=== PATIENT | male | born 1960 | race Caucasian/White ===

== ENCOUNTER 2017-01-03 19:36 | Inpatient (IN) | payer BC ==
[~2017-01-03 19:36] MED LIST: ACETAMINOPHEN325 MG PO; ACTOS PLUS MET; ALDACTONE25 M1 PO; ALLOPURINOL100 M1 PO; AMITRIPTYLINE H25 M1 PO; ASPIRIN; ASPIRIN ENTERI325 MG PO; ASPIRIN81 MG PO; CARVEDILOL3.125 MG PO; COREG12.5 M1 PO; COUMADIN5 M2 PO; COUMADIN5 MG PO; COUMADIN6 M1 PO; COZAAR25 M1 PO; DELTASONE20 MG PO; DEMADEX20 M1 PO; GLUCOPHAGE1000 MG; GLUCOPHAGE850 M1 PO; INDOCIN50 MG PO; K-DUR10 MEQ PO; KEFLEX500 MG PO; LASIX20 MG PO; LISINOPRIL20 MG; LISINOPRIL20 MG PO; LUNESTA2 MG PO; MAGNESIUM OXID400 M1 PO; METOPROLOL SUCCINATE PO; NABUMETONE750 MG; NAPROXEN500 MG PO; NOVOLOG PEN SC; PERCOCET 5-3251 EACH PO; PERCOCET 5/3251 TAB PO; PLAQUENIL200 M1 PO; PREDNICARBATE; PREDNISONE10 M1 PO; PREDNISONE5 M1 PO; PROTONIX40 M2 PO; RESTORIL15 MG; SOTALOL HCL80 MG PO; SPIRONOLACTONE25 M2 PO; STOP HOME MEDICATION; SULFASALAZINE500 M1; TYLENOL W/CODEI1 TAB PO; TYLENOL325 M2 PO; VITORIN; VYTORIN 10-401 EACH PO; ZOFRAN ODT4 MG PO; ZOFRAN4 M2 PO; [UNRECOGNIZED DRUG - OTHER] PO
[2017-01-03 20:22] LABS: BASO % 0.3 % (0-2); EOS % 1.5 % (0-7); EOSINOPHIL ABSOLUTE COUNT 0.1 tho/cmm (0.0-0.7); HGB-HEMOGLOBIN 11.9 gm/dl (13.5-17.0); IMMATURE GRANULOCYTES ABSOLUTE 0.04 tho/cmm (0-0.03); IMMATURE GRANULOCYTES PERCENT 0.5 % (0-0.3); LYMPH % 22.9 % (20-45); LYMPH ABSOLUTE COUNT 1.7 tho/cmm (0.8-4.5); MCH (MEAN CORPUSCULAR HGB) 29.5 pg (28.0-32.0); MCHC MEAN CORPUSCULAR HGB CONC 32.2 % (32.0-36.0); MCV (MEAN CELL VOLUME) 91.6 fl (82.0-96.0); MONO % 8.6 % (0-12); MONOCYTE ABSOLUTE COUNT 0.6 tho/cmm (0.0-1.2); NEUTROPHIL ABSOLUTE COUNT 4.8 tho/cmm (1.6-8.0); NEUTROPHIL-AUTOMATED 4.8 tho/cmm (1.6-8.0); NEUTROPHILS % 66.2 % (40-80); PLATELET COUNT 182 tho/cmm (150-450); RED BLOOD COUNT 4.04 mil/cmm (4.40-5.70); RED CELL DISTRIBUTION WIDTH 14.8 % (12.4-16.4); WHITE BLOOD COUNT 7.3 tho/cmm (4.0-10.0)
[2017-01-03 20:40] LABS: ANION GAP 12 mmol/L (0-20); BLOOD UREA NITROGEN 33 mg/dl (6-24); CALCIUM 8.7 mg/dl (8.5-10.5); CARBON DIOXIDE-VENOUS 29 mmol/L (22-32); CHLORIDE 100 mmol/l (96-110); CREATININE 1.35 mg/dl (0.60-1.30); GLUCOSE 120 mg/dL (70-110); MAGNESIUM 1.8 mg/dl (1.3-2.6); POTASSIUM 3.1 mmol/L (3.7-5.1); SODIUM 138 mmol/L (135-145); eGFR VALUE FOR BLACK 67 mL/Min
[2017-01-03 21:18] LABS: INR 1.9 INR (0.9-1.1); PROTHROMBIN TIME 22.6 SECONDS (9.0-13.6)
[2017-01-03] MEDS ORDERED: DEMADEX20 M1 PO (22:01)
[2017-01-03] MEDS ORDERED: POTASSIUM CHLO20 ME3 PO (22:02)
[2017-01-03] MEDS ORDERED: LANOXIN125 MC3 PO (22:03)
[2017-01-03] MEDS ORDERED: TOPROL XL25 M1 PO (22:04)
[2017-01-03] MEDS ORDERED: PLAQUENIL200 M1 (22:05)
[2017-01-03] MEDS ORDERED: ENTRESTO 24 MG1 EACH PO (22:06)
[2017-01-03] MEDS ORDERED: VITAMIN D31000 UNI3 PO (22:07)
[2017-01-04 05:13] LABS: PROTHROMBIN TIME 24.2 SECONDS (9.0-13.6)
[2017-01-04 05:25] LABS: ANION GAP 11 mmol/L (0-20); BLOOD UREA NITROGEN 31 mg/dl (6-24); CALCIUM 8.6 mg/dl (8.5-10.5); CARBON DIOXIDE-VENOUS 28 mmol/L (22-32); CHLORIDE 104 mmol/l (96-110); CREATININE 1.28 mg/dl (0.60-1.30); GLUCOSE 108 mg/dL (70-110); MAGNESIUM 2.1 mg/dl (1.3-2.6); POTASSIUM 3.5 mmol/L (3.7-5.1); SODIUM 139 mmol/L (135-145); eGFR VALUE FOR BLACK 72 mL/Min
[2017-01-04 05:29] LABS: TSH-THYROID STIMULATING HORM. 4.43 uIU/ml (0.40-3.80)
[2017-01-05 06:19] LABS: ANION GAP 12 mmol/L (0-20); BLOOD UREA NITROGEN 29 mg/dl (6-24); CALCIUM 8.8 mg/dl (8.5-10.5); CARBON DIOXIDE-VENOUS 25 mmol/L (22-32); CHLORIDE 102 mmol/l (96-110); CREATININE 1.43 mg/dl (0.60-1.30); SODIUM 135 mmol/L (135-145); eGFR VALUE FOR BLACK 63 mL/Min
[2017-01-05 06:21] LABS: GLUCOSE 175 mg/dL (70-110)
[2017-01-06 04:47] LABS: BASO % 0.2 % (0-2); EOS % 0.2 % (0-7); HCT-HEMATOCRIT 43.9 % (36.0-53.5); HGB-HEMOGLOBIN 13.9 gm/dl (13.5-17.0); IMMATURE GRANULOCYTES ABSOLUTE 0.17 tho/cmm (0-0.03); IMMATURE GRANULOCYTES PERCENT 1.2 % (0-0.3); LYMPH % 13.8 % (20-45); LYMPH ABSOLUTE COUNT 1.9 tho/cmm (0.8-4.5); MCH (MEAN CORPUSCULAR HGB) 29.6 pg (28.0-32.0); MCHC MEAN CORPUSCULAR HGB CONC 31.7 % (32.0-36.0); MCV (MEAN CELL VOLUME) 93.4 fl (82.0-96.0); MEAN PLATELET VOLUME 9.8 cmc (9.4-12.4); MONO % 9.1 % (0-12); MONOCYTE ABSOLUTE COUNT 1.3 tho/cmm (0.0-1.2); NEUTROPHIL ABSOLUTE COUNT 10.3 tho/cmm (1.6-8.0); NEUTROPHIL-AUTOMATED 10.3 tho/cmm (1.6-8.0); NEUTROPHILS % 75.5 % (40-80); PLATELET COUNT 196 tho/cmm (150-450); RED CELL DISTRIBUTION WIDTH 14.9 % (12.4-16.4)
[2017-01-06 04:52] LABS: INR 2.3 INR (0.9-1.1); PROTHROMBIN TIME 27.6 SECONDS (9.0-13.6)
[2017-01-06 04:59] LABS: BLOOD UREA NITROGEN 40 mg/dl (6-24); CALCIUM 8.7 mg/dl (8.5-10.5); CARBON DIOXIDE-VENOUS 24 mmol/L (22-32); CHLORIDE 97 mmol/l (96-110); GLUCOSE 166 mg/dL (70-110); SODIUM 135 mmol/L (135-145); eGFR VALUE FOR BLACK 38 mL/Min
[2017-01-06 05:09] LABS: WHITE BLOOD COUNT 13.7 tho/cmm (4.0-10.0)
[2017-01-06 05:18] LABS: ANION GAP 19 mmol/L (0-20); CREATININE 2.16 mg/dl (0.60-1.30); POTASSIUM 4.9 mmol/L (3.7-5.1)
[2017-01-06 14:50] LABS: ABG CO2 ARTERIAL 11 mmol/L (21-27); ARTERIAL BLD GAS O2 SATURATION 99 % (95-98); ARTERIAL BLOOD GAS PCO2 25 mmHg (32-45); ARTERIAL PO2 224 mmHg (70-100); BICARBONATE 10 mmol/L (21-28); BLOOD GAS BASE EXCESS -17 mM/L (-/+3); PH 7.22 Units (7.35-7.45)
[2017-01-06 15:59] LABS: BASO % 0.1 % (0-2); HCT-HEMATOCRIT 39.4 % (36.0-53.5); HGB-HEMOGLOBIN 12.4 gm/dl (13.5-17.0); IMMATURE GRANULOCYTES ABSOLUTE 0.31 tho/cmm (0-0.03); IMMATURE GRANULOCYTES PERCENT 1.4 % (0-0.3); LYMPH % 4.2 % (20-45); LYMPH ABSOLUTE COUNT 0.9 tho/cmm (0.8-4.5); MCH (MEAN CORPUSCULAR HGB) 29.8 pg (28.0-32.0); MCHC MEAN CORPUSCULAR HGB CONC 31.5 % (32.0-36.0); MCV (MEAN CELL VOLUME) 94.7 fl (82.0-96.0); MEAN PLATELET VOLUME 10.2 cmc (9.4-12.4); MONO % 5.9 % (0-12); MONOCYTE ABSOLUTE COUNT 1.3 tho/cmm (0.0-1.2); NEUTROPHIL ABSOLUTE COUNT 19.5 tho/cmm (1.6-8.0); NEUTROPHIL-AUTOMATED 19.5 tho/cmm (1.6-8.0); NEUTROPHILS % 88.4 % (40-80); PLATELET COUNT 213 tho/cmm (150-450); RED BLOOD COUNT 4.16 mil/cmm (4.40-5.70); RED CELL DISTRIBUTION WIDTH 14.9 % (12.4-16.4)
[2017-01-06 16:29] LABS: WHITE BLOOD COUNT 22.1 tho/cmm (4.0-10.0)
[2017-01-06 16:32] LABS: ALB/GLOB RATIO 1.2 (0.8-2.0); ALBUMIN 3.4 g/dl (3.5-5.0); ALKALINE PHOSPHATASE 83 U/L (33-138); BILIRUBIN,TOTAL 3.3 mg/dl (0.0-1.5); BLOOD UREA NITROGEN 52 mg/dl (6-24); CALCIUM 8.3 mg/dl (8.5-10.5); CHLORIDE 97 mmol/l (96-110); GLUCOSE 86 mg/dL (70-110); POTASSIUM 5.3 mmol/L (3.7-5.1); SODIUM 133 mmol/L (135-145)
[2017-01-06 16:33] LABS: ANION GAP 30 mmol/L (0-20); CARBON DIOXIDE-VENOUS 11 mmol/L (22-32); eGFR VALUE FOR BLACK 20 mL/Min
[2017-01-06 16:35] LABS: PROCALCITONIN 5.56 ng/ml (0.05-0.09)
[2017-01-06 16:40] LABS: ALT/SGPT 7005 U/L (12-78)
[2017-01-06 16:59] LABS: ABG CO2 ARTERIAL 10 mmol/L (21-27); ARTERIAL BLD GAS O2 SATURATION 96 % (95-98); ARTERIAL BLOOD GAS PCO2 31 mmHg (32-45); ARTERIAL PO2 122 mmHg (70-100); BICARBONATE 9 mmol/L (21-28); BLOOD GAS BASE EXCESS -21 mM/L (-/+3)
[2017-01-06 17:02] LABS: PH 7.08 Units (7.35-7.45)
[2017-01-06 17:22] LABS: AST/SGOT >10000 U/L (10-40)
[2017-01-06 19:07] LABS: ARTERIAL BLD GAS O2 SATURATION 97 % (95-98); ARTERIAL BLOOD GAS PCO2 29 mmHg (32-45); ARTERIAL PO2 128 mmHg (70-100); BICARBONATE 9 mmol/L (21-28); BLOOD GAS BASE EXCESS -19 mM/L (-/+3)
[2017-01-06 19:08] LABS: URINE CREATININE-RANDOM 178 mg/dl (30-125); URINE TOTAL PROTEIN-RANDOM 33.4 mg/dl (<11.8)
[2017-01-06 19:10] LABS: ABG CO2 ARTERIAL 10 mmol/L (21-27); PH 7.13 Units (7.35-7.45)
[2017-01-06 19:11] LABS: URINE SODIUM-RANDOM <5 mmol/L (20-110)
[2017-01-06 19:31] LABS: PARTIAL THROMBOPLASTIN TIME 33 SECONDS (22-38)
[2017-01-06 19:36] LABS: INR 5.1 INR (0.9-1.1)
[2017-01-06 19:40] LABS: ALBUMIN 3.6 g/dl (3.5-5.0); ANION GAP 29 mmol/L (0-20); BLOOD UREA NITROGEN 53 mg/dl (6-24); CALCIUM 8.4 mg/dl (8.5-10.5); CARBON DIOXIDE-VENOUS 12 mmol/L (22-32); CHLORIDE 97 mmol/l (96-110); CREATININE 3.65 mg/dl (0.60-1.30); GLUCOSE 87 mg/dL (70-110); PHOSPHOROUS 8.1 mg/dl (2.5-4.9); POTASSIUM 5.4 mmol/L (3.7-5.1); SODIUM 133 mmol/L (135-145); eGFR VALUE FOR BLACK 20 mL/Min
--- NOTE | 2017-01-06 20:25 | NUR ---
1435 TRANSFERRED FROM PCU POST CODE FOR HYPOTENSION AND DECREASED RESPONSIVENESS, PT VERY SLEEPY, SKIN COOL AND DISCOLORED SHINS-HE SAYS THAT IS HIS NORMAL, HYPOTENSION, ON DOPAMINE AND INCREASED FROM 5-10, STARTED IV LAC FOR IV FLUID BOLUS, THEN STARTED LEVO, AMNIODARONE STILL CONT AT 0.5/MIN, PICC UNABLE TO INSERT SO DR COTTER HERE AND RSC INSERTED-QUAD LUMEN, FOR IV PRESSORS, STARTED ON VASOPRESSIN AT 0.03, FLUID BOLUS DONE AND 2ND LITER STARTED ALONG WITH ANOTHER 500 INFUSED, CONTINUES TO HAVE LOB BP, DR JEREMY GRACE ALONG WITH DR OLVIO. ORDERS NOTED, SEPDSIS ORDERS STARTED AND SVO2 SENT ALONG WITH OTHER LAB AND BLOOD CULT-X2, THEN REIS INSERTED FOR NO URINE OUTPUT. KAROLINE CONCENTRATED RETURNS. CALLED FOR QUAD STRENGHT LEVO AND CHANGED OVER TO THIS. CONTINUE TO MONITOR FOR MAP AROUND 65. FAMILY HERE AND IN TO SEE PT, DR COTTER ASKED PT INFRONT OF FAMILY RE IF NEED BREATHING TUBE IF OK TO DO THIS, THEY ALL AGREE TO THIS. MEDS GIVEN ORDERED AND THEN DR SAN HERE AND BICARB GIVEN STAT AND THEN SENT ORDERS FOR BICARB GTT. REPORT GIVEN TO DIAMOND PETERSON.
[2017-01-06 21:06] LABS: URINE BILIRUBIN NEGATIVE (NEG); URINE BLOOD NEGATIVE (NEG); URINE GLUCOSE (UA) NEGATIVE (NEG); URINE KETONE NEGATIVE (NEG); URINE LEUKOCYTE ESTERASE NEGATIVE (NEG); URINE NITRITE NEGATIVE (NEG); URINE PROTEIN MODERATE (NEG); URINE SPECIFIC GRAVITY 1.025 (1.003-1.030)
[2017-01-06 21:07] LABS: URINE APPEARANCE HAZY; URINE COLOR YELLOW
[2017-01-06 21:16] LABS: URINE AMORPHOUS 1+; URINE EPITHELIAL CELLS 0 /[HPF] (0-10); URINE MUCUS 2+; URINE RBC 0 /[HPF] (0-5); URINE WBC 0 /[HPF] (0-5)
[2017-01-06 21:30] LABS: AMYLASE 189 U/L (20-90); LIPASE 269 U/L (73-393)
[2017-01-06 23:18] LABS: ARTERIAL BLD GAS O2 SATURATION 97 % (95-98); ARTERIAL BLOOD GAS PCO2 26 mmHg (32-45); ARTERIAL PO2 135 mmHg (70-100); BICARBONATE 7 mmol/L (21-28); BLOOD GAS BASE EXCESS -22 mM/L (-/+3)
[2017-01-06 23:19] LABS: ABG CO2 ARTERIAL 8 mmol/L (21-27); PH 7.09 Units (7.35-7.45)
[2017-01-07 00:21] LABS: ANION GAP 35 mmol/L (0-20); BLOOD UREA NITROGEN 56 mg/dl (6-24); CALCIUM 7.5 mg/dl (8.5-10.5); CHLORIDE 92 mmol/l (96-110); CREATININE 4.15 mg/dl (0.60-1.30); GLUCOSE 323 mg/dL (70-110); POTASSIUM 4.7 mmol/L (3.7-5.1); SODIUM 129 mmol/L (135-145); eGFR VALUE FOR BLACK 17 mL/Min
[2017-01-07 00:24] LABS: CARBON DIOXIDE-VENOUS 7 mmol/L (22-32)
[2017-01-07 01:35] LABS: ARTERIAL BLD GAS O2 SATURATION 98 % (95-98); ARTERIAL BLOOD GAS PCO2 28 mmHg (32-45); BICARBONATE 7 mmol/L (21-28); BLOOD GAS BASE EXCESS -23 mM/L (-/+3)
[2017-01-07 01:37] LABS: PH 7.03 Units (7.35-7.45)
[2017-01-07 01:38] LABS: ARTERIAL PO2 177 mmHg (70-100)
[2017-01-07 01:39] LABS: ABG CO2 ARTERIAL 8 mmol/L (21-27)
[2017-01-07 04:21] LABS: GLUCOSE 462 mg/dl (65-120)
[2017-01-07 04:41] LABS: BASO % 0.1 % (0-2); HCT-HEMATOCRIT 40.4 % (36.0-53.5); HGB-HEMOGLOBIN 12.2 gm/dl (13.5-17.0); IMMATURE GRANULOCYTES ABSOLUTE 0.15 tho/cmm (0-0.03); IMMATURE GRANULOCYTES PERCENT 0.6 % (0-0.3); LYMPH % 5.9 % (20-45); LYMPH ABSOLUTE COUNT 1.5 tho/cmm (0.8-4.5); MCH (MEAN CORPUSCULAR HGB) 29.5 pg (28.0-32.0); MCHC MEAN CORPUSCULAR HGB CONC 30.2 % (32.0-36.0); MCV (MEAN CELL VOLUME) 97.8 fl (82.0-96.0); MEAN PLATELET VOLUME 10.8 cmc (9.4-12.4); MONO % 3.5 % (0-12); MONOCYTE ABSOLUTE COUNT 0.9 tho/cmm (0.0-1.2); NEUTROPHIL ABSOLUTE COUNT 23.4 tho/cmm (1.6-8.0); NEUTROPHIL-AUTOMATED 23.4 tho/cmm (1.6-8.0); NEUTROPHILS % 89.9 % (40-80); PLATELET COUNT 260 tho/cmm (150-450); RED BLOOD COUNT 4.13 mil/cmm (4.40-5.70); RED CELL DISTRIBUTION WIDTH 15.1 % (12.4-16.4)
[2017-01-07 04:44] LABS: ALB/GLOB RATIO 1.1 (0.8-2.0); ALBUMIN 3.1 g/dl (3.5-5.0); ALKALINE PHOSPHATASE 112 U/L (33-138); BILIRUBIN,TOTAL 3.7 mg/dl (0.0-1.5); BLOOD UREA NITROGEN 56 mg/dl (6-24); CALCIUM 6.9 mg/dl (8.5-10.5); CHLORIDE 89 mmol/l (96-110); CREATININE 4.61 mg/dl (0.60-1.30); MAGNESIUM 2.1 mg/dl (1.3-2.6); POTASSIUM 4.2 mmol/L (3.7-5.1); SODIUM 130 mmol/L (135-145); eGFR VALUE FOR BLACK 15 mL/Min
[2017-01-07 05:03] LABS: ARTERIAL BLD GAS O2 SATURATION 98 % (95-98); ARTERIAL BLOOD GAS PCO2 24 mmHg (32-45); ARTERIAL PO2 172 mmHg (70-100); BICARBONATE 8 mmol/L (21-28); BLOOD GAS BASE EXCESS -21 mM/L (-/+3)
[2017-01-07 05:04] LABS: ABG CO2 ARTERIAL 8 mmol/L (21-27); PH 7.11 Units (7.35-7.45)
[2017-01-07 05:27] LABS: ALT/SGPT 9389 U/L (12-78)
[2017-01-07 06:00] LABS: ANION GAP 36 mmol/L (0-20); CARBON DIOXIDE-VENOUS 9 mmol/L (22-32)
[2017-01-07 08:50] LABS: AST/SGOT >10000 U/L (10-40)
--- NOTE | 2017-01-07 09:04 | NUR ---
DR. RAPHAEL FROM ANESTHESIA TO INTUBATE PATIENT. LIDOCAINE 100MG, ETOMIDATE 26MG, NIMBEX 12MG AND 2MG VERSED GIVEN. BIS MONITOR PLACED ON PATIENT'S FOREHEAD PER DR RAPHAEL. IZZY FROM RT TO ASSIST ANESTHESIA WITH INTUBATION. CXR STAT POST INTUBATION COMPLETED. ABGS DRAWN 30 MINUTES POST INTUBATION COMPLETED.
[2017-01-07 10:17] LABS: ARTERIAL BLD GAS O2 SATURATION 100 % (95-98); ARTERIAL BLOOD GAS PCO2 24 mmHg (32-45); BLOOD GAS BASE EXCESS -9 mM/L (-/+3)
[2017-01-07 10:18] LABS: ABG CO2 ARTERIAL 15 mmol/L (21-27); ARTERIAL PO2 291 mmHg (70-100); BICARBONATE 14 mmol/L (21-28)
[2017-01-07 10:27] LABS: GLUCOSE 446 mg/dl (65-120); PARTIAL THROMBOPLASTIN TIME 30 SECONDS (22-38)
[2017-01-07 10:48] LABS: PROTHROMBIN TIME 87.7 SECONDS (9.0-13.6)
[2017-01-07 10:49] LABS: INR 7.1 INR (0.9-1.1)
[2017-01-07 10:54] LABS: ALB/GLOB RATIO 1.2 (0.8-2.0); ALBUMIN 2.9 g/dl (3.5-5.0); ALKALINE PHOSPHATASE 111 U/L (33-138); BILIRUBIN,TOTAL 3.7 mg/dl (0.0-1.5); BLOOD UREA NITROGEN 60 mg/dl (6-24); CALCIUM 7.1 mg/dl (8.5-10.5); CHLORIDE 89 mmol/l (96-110); SODIUM 128 mmol/L (135-145); eGFR VALUE FOR BLACK 15 mL/Min
[2017-01-07 10:57] LABS: ANION GAP 29 mmol/L (0-20); CARBON DIOXIDE-VENOUS 15 mmol/L (22-32); POTASSIUM 4.6 mmol/L (3.7-5.1)
[2017-01-07 11:19] LABS: ALT/SGPT 9280 U/L (12-78); AST/SGOT >10000 U/L (10-40)
[2017-01-07 13:47] LABS: ARTERIAL BLD GAS O2 SATURATION 99 % (95-98); ARTERIAL BLOOD GAS PCO2 26 mmHg (32-45); BLOOD GAS BASE EXCESS -2 mM/L (-/+3)
[2017-01-07 13:48] LABS: ABG CO2 ARTERIAL 20 mmol/L (21-27); ARTERIAL PO2 134 mmHg (70-100); BICARBONATE 20 mmol/L (21-28)
[2017-01-07 14:26] LABS: PARTIAL THROMBOPLASTIN TIME 30 SECONDS (22-38)
[2017-01-07 14:37] LABS: INR 4.4 INR (0.9-1.1); PROTHROMBIN TIME 53.4 SECONDS (9.0-13.6)
[2017-01-07 15:39] LABS: ABG CO2 ARTERIAL 24 mmol/L (21-27); ARTERIAL BLD GAS O2 SATURATION 99 % (95-98); ARTERIAL BLOOD GAS PCO2 35 mmHg (32-45); ARTERIAL PO2 120 mmHg (70-100); BICARBONATE 23 mmol/L (21-28); BLOOD GAS BASE EXCESS -1 mM/L (-/+3); PH 7.43 Units (7.35-7.45)
[2017-01-07 15:44] LABS: ALB/GLOB RATIO 1.4 (0.8-2.0); ALBUMIN 3.1 g/dl (3.5-5.0); ALKALINE PHOSPHATASE 101 U/L (33-138); ANION GAP 23 mmol/L (0-20); BILIRUBIN,TOTAL 3.5 mg/dl (0.0-1.5); BLOOD UREA NITROGEN 61 mg/dl (6-24); CALCIUM 7.2 mg/dl (8.5-10.5); CARBON DIOXIDE-VENOUS 20 mmol/L (22-32); CHLORIDE 90 mmol/l (96-110); GLUCOSE 249 mg/dL (70-110); SODIUM 129 mmol/L (135-145); eGFR VALUE FOR BLACK 15 mL/Min
[2017-01-07 16:02] LABS: ALT/SGPT 8064 U/L (12-78); AST/SGOT >10000 U/L (10-40)
[2017-01-08 04:21] LABS: PROTHROMBIN TIME 106.8 SECONDS (9.0-13.6)
[2017-01-08 04:22] LABS: INR 8.6 INR (0.9-1.1)
[2017-01-08 04:32] LABS: BASO % 0.1 % (0-2); EOS % 0.1 % (0-7); HCT-HEMATOCRIT 32.9 % (36.0-53.5); IMMATURE GRANULOCYTES ABSOLUTE 0.05 tho/cmm (0-0.03); IMMATURE GRANULOCYTES PERCENT 0.3 % (0-0.3); LYMPH % 2.8 % (20-45); LYMPH ABSOLUTE COUNT 0.5 tho/cmm (0.8-4.5); MCH (MEAN CORPUSCULAR HGB) 29.3 pg (28.0-32.0); MEAN PLATELET VOLUME 10.2 cmc (9.4-12.4); MONO % 2.9 % (0-12); MONOCYTE ABSOLUTE COUNT 0.5 tho/cmm (0.0-1.2); NEUTROPHIL ABSOLUTE COUNT 14.8 tho/cmm (1.6-8.0); NEUTROPHIL-AUTOMATED 14.8 tho/cmm (1.6-8.0); NEUTROPHILS % 93.8 % (40-80); RED BLOOD COUNT 3.75 mil/cmm (4.40-5.70); RED CELL DISTRIBUTION WIDTH 14.5 % (12.4-16.4); WHITE BLOOD COUNT 15.8 tho/cmm (4.0-10.0)
[2017-01-08 04:33] LABS: ALB/GLOB RATIO 1.4 (0.8-2.0); ALKALINE PHOSPHATASE 102 U/L (33-138); ANION GAP 22 mmol/L (0-20); BILIRUBIN,TOTAL 4.5 mg/dl (0.0-1.5); BLOOD UREA NITROGEN 76 mg/dl (6-24); CALCIUM 6.6 mg/dl (8.5-10.5); CARBON DIOXIDE-VENOUS 23 mmol/L (22-32); CHLORIDE 88 mmol/l (96-110); CREATININE 5.39 mg/dl (0.60-1.30); GLUCOSE 135 mg/dL (70-110); MAGNESIUM 1.8 mg/dl (1.8-2.6); POTASSIUM 5.1 mmol/L (3.7-5.1); SODIUM 128 mmol/L (135-145); eGFR VALUE FOR BLACK 13 mL/Min
[2017-01-08 04:44] LABS: MCHC MEAN CORPUSCULAR HGB CONC 33.4 % (32.0-36.0); MCV (MEAN CELL VOLUME) 87.7 fl (82.0-96.0); PLATELET COUNT 126 tho/cmm (150-450)
[2017-01-08 04:48] LABS: ABG CO2 ARTERIAL 24 mmol/L (21-27); ARTERIAL BLD GAS O2 SATURATION 95 % (95-98); ARTERIAL BLOOD GAS PCO2 38 mmHg (32-45); BICARBONATE 23 mmol/L (21-28); BLOOD GAS BASE EXCESS -2 mM/L (-/+3); PH 7.39 Units (7.35-7.45)
[2017-01-08 04:49] LABS: ARTERIAL PO2 80 mmHg (70-100)
[2017-01-08 04:53] LABS: ALT/SGPT 7384 U/L (12-78); AST/SGOT 8828 U/L (10-40)
[2017-01-08 07:41] LABS: ABG CO2 ARTERIAL 22 mmol/L (21-27); ARTERIAL BLD GAS O2 SATURATION 98 % (95-98); ARTERIAL BLOOD GAS PCO2 34 mmHg (32-45); BICARBONATE 21 mmol/L (21-28); BLOOD GAS BASE EXCESS -3 mM/L (-/+3); PH 7.41 Units (7.35-7.45)
[2017-01-08 07:44] LABS: ARTERIAL PO2 103 mmHg (70-100)
[2017-01-08 08:37] LABS: BASO % 0.1 % (0-2); HCT-HEMATOCRIT 32.6 % (36.0-53.5); LYMPH % 2.7 % (20-45); LYMPH ABSOLUTE COUNT 0.4 tho/cmm (0.8-4.5); MCH (MEAN CORPUSCULAR HGB) 29.6 pg (28.0-32.0); MCHC MEAN CORPUSCULAR HGB CONC 33.7 % (32.0-36.0); MCV (MEAN CELL VOLUME) 87.9 fl (82.0-96.0); MEAN PLATELET VOLUME 10.8 cmc (9.4-12.4); MONOCYTE ABSOLUTE COUNT 0.6 tho/cmm (0.0-1.2); NEUTROPHIL ABSOLUTE COUNT 14.8 tho/cmm (1.6-8.0); NEUTROPHIL-AUTOMATED 14.8 tho/cmm (1.6-8.0); NEUTROPHILS % 92.6 % (40-80); PLATELET COUNT 138 tho/cmm (150-450); RED BLOOD COUNT 3.71 mil/cmm (4.40-5.70); RED CELL DISTRIBUTION WIDTH 14.6 % (12.4-16.4)
[2017-01-08 08:46] LABS: PARTIAL THROMBOPLASTIN TIME 30 SECONDS (22-38)
[2017-01-08 08:48] LABS: FIBRINOGEN 206 mg/dl (200-400)
[2017-01-08 08:49] LABS: ANTI THROMBIN III 53 % (80-120)
[2017-01-08 08:51] LABS: INR 4.4 INR (0.9-1.1); PROTHROMBIN TIME 53.9 SECONDS (9.0-13.6)
[2017-01-08 08:52] LABS: D-DIMER 29555 ng/mlFEU (<500)
[2017-01-08 13:52] LABS: PROTHROMBIN TIME 42.4 SECONDS (9.0-13.6)
[2017-01-08 13:53] LABS: INR 3.5 INR (0.9-1.1)
--- NOTE | 2017-01-08 18:30 | NUR ---
0815 PATIENT RESTLESS/ ANXIOUS, TRIES TO SIT UP AND MOUTHS WORDS. REASURED AND REORIENTED TO EVENTS AND PLACE. DAUGHTER @ [place]ESIDE. C/O PAIN AND THIRSTY. MORPHINE 2 MG IVP GIVEN. 0845 RESTING MORE QUIETLY. FFP X 2 UNITS INFUSED AND INR TO BE DRAWN. PLAN TO HAVE TEMPORARY HD CATH PLACED AND START CRRT. 0940 LAB RESULTS CALLED TO IR NURSE FOR DR. DIAZ. 1015 RESTLESS/AGITATED, TRIES TO GET HANDS TO MOUTH AND PULLS AGAINST RESTRAINTS. MOVING ALL EXTREMITIES AND TRIES TO SIT UP. MOUTHS WORDS, SHAKES HEAD YES FOR HAVING PAIN. ATIVAN 2MG AND MORPHINE 2 MG IVP GIVEN. HAS TREMORS OF UPPER BODY AND FACIAL TWITCH WITH AGITATION. IR CALLS, DR DIAZ WANTS 2 MORE UNITS FFP GIVEN PRIOR TO HD CATH INSERTION. 1030 RESTING QUIETLY. VS STABLE, SEE VISUAL FLOWSHEET-TITRATING LEVOPHED FOR MAP >65. 1130 FFP TRANSFUSION STARTED. 1245 FFP INFUSED. INR DRAWN. [address]R [address]ED TO DR. LEAL AND INTERVENTIONAL RADIOLOGY. ORDERS RECIEVED. 1545 TO IR FOR HD CATH PLACEMENT VIA BED. ACCOMPANIED BY RN AND RESP. THERAPIST. CRYOPRECIPITATE UNITS STARTED. 1700 BACK TO ROOM, TOLERATED PROCEDURE WELL. MOVE ARMS PURPOSEFULLY AND OPENS EYES WITH NOXIOUS STIMULI. CRRT STARTED 2 1710 BY DCL NURSE. 1720 4 UNITS CRYOPRECIPITATE COMPLETED. RESTING QUIETLY. TOLERATING CRRT WELL. LEVOPHED ON HOLD. 1800 DR. PINA CALLS AND GIVEN CONDITION UPDATE.
[2017-01-08 19:31] LABS: ABG CO2 ARTERIAL 23 mmol/L (21-27); ARTERIAL BLD GAS O2 SATURATION 99 % (95-98); ARTERIAL BLOOD GAS PCO2 34 mmHg (32-45); ARTERIAL PO2 146 mmHg (70-100); BICARBONATE 22 mmol/L (21-28); BLOOD GAS BASE EXCESS -2 mM/L (-/+3); PH 7.42 Units (7.35-7.45)
[2017-01-08 20:25] LABS: PROTHROMBIN TIME 36.6 SECONDS (9.0-13.6)
[2017-01-08 20:44] LABS: ALB/GLOB RATIO 1.1 (0.8-2.0); ALBUMIN 3.1 g/dl (3.5-5.0); ALKALINE PHOSPHATASE 95 U/L (33-138); ANION GAP 24 mmol/L (0-20); BILIRUBIN,TOTAL 4.8 mg/dl (0.0-1.5); BLOOD UREA NITROGEN 79 mg/dl (6-24); CALCIUM 6.6 mg/dl (8.5-10.5); CARBON DIOXIDE-VENOUS 21 mmol/L (22-32); CHLORIDE 90 mmol/l (96-110); CREATININE 5.06 mg/dl (0.60-1.30); GLUCOSE 182 mg/dL (70-110); MAGNESIUM 1.9 mg/dl (1.8-2.6); PHOSPHOROUS 7.3 mg/dl (2.5-4.9); POTASSIUM 4.7 mmol/L (3.7-5.1); SODIUM 130 mmol/L (135-145); eGFR VALUE FOR BLACK 14 mL/Min
[2017-01-08 20:54] LABS: ALT/SGPT 5377 U/L (12-78); AST/SGOT 4213 U/L (10-40)
[2017-01-08 21:30] LABS: INR 3.6 INR (0.9-1.1); PROTHROMBIN TIME 42.9 SECONDS (9.0-13.6)
[2017-01-09 00:23] LABS: ABG CO2 ARTERIAL 22 mmol/L (21-27); ARTERIAL BLD GAS O2 SATURATION 99 % (95-98); ARTERIAL BLOOD GAS PCO2 31 mmHg (32-45); ARTERIAL PO2 129 mmHg (70-100); BICARBONATE 21 mmol/L (21-28); BLOOD GAS BASE EXCESS -2 mM/L (-/+3); PH 7.45 Units (7.35-7.45)
[2017-01-09 00:24] LABS: HCT-HEMATOCRIT 31.4 % (36.0-53.5); HGB-HEMOGLOBIN 10.7 gm/dl (13.5-17.0); IMMATURE GRANULOCYTES ABSOLUTE 0.04 tho/cmm (0-0.03); IMMATURE GRANULOCYTES PERCENT 0.3 % (0-0.3); LYMPH % 4.2 % (20-45); LYMPH ABSOLUTE COUNT 0.5 tho/cmm (0.8-4.5); MCH (MEAN CORPUSCULAR HGB) 29.6 pg (28.0-32.0); MCHC MEAN CORPUSCULAR HGB CONC 34.1 % (32.0-36.0); MEAN PLATELET VOLUME 10.1 cmc (9.4-12.4); MONO % 2.9 % (0-12); MONOCYTE ABSOLUTE COUNT 0.4 tho/cmm (0.0-1.2); NEUTROPHIL ABSOLUTE COUNT 11.3 tho/cmm (1.6-8.0); NEUTROPHIL-AUTOMATED 11.3 tho/cmm (1.6-8.0); NEUTROPHILS % 92.6 % (40-80); PLATELET COUNT 108 tho/cmm (150-450); RED BLOOD COUNT 3.61 mil/cmm (4.40-5.70); RED CELL DISTRIBUTION WIDTH 14.6 % (12.4-16.4); WHITE BLOOD COUNT 12.2 tho/cmm (4.0-10.0)
[2017-01-09 00:37] LABS: ANION GAP 18 mmol/L (0-20); BLOOD UREA NITROGEN 67 mg/dl (6-24); CALCIUM 6.8 mg/dl (8.5-10.5); CARBON DIOXIDE-VENOUS 22 mmol/L (22-32); CHLORIDE 94 mmol/l (96-110); CREATININE 4.17 mg/dl (0.60-1.30); GLUCOSE 161 mg/dL (70-110); PHOSPHOROUS 5.7 mg/dl (2.5-4.9); POTASSIUM 4.2 mmol/L (3.7-5.1); SODIUM 130 mmol/L (135-145); eGFR VALUE FOR BLACK 17 mL/Min
[2017-01-09 04:35] LABS: BASO % 0.1 % (0-2); HCT-HEMATOCRIT 31.9 % (36.0-53.5); HGB-HEMOGLOBIN 10.8 gm/dl (13.5-17.0); IMMATURE GRANULOCYTES ABSOLUTE 0.08 tho/cmm (0-0.03); IMMATURE GRANULOCYTES PERCENT 0.7 % (0-0.3); LYMPH % 4.1 % (20-45); LYMPH ABSOLUTE COUNT 0.5 tho/cmm (0.8-4.5); MCH (MEAN CORPUSCULAR HGB) 29.3 pg (28.0-32.0); MCHC MEAN CORPUSCULAR HGB CONC 33.9 % (32.0-36.0); MCV (MEAN CELL VOLUME) 86.7 fl (82.0-96.0); MEAN PLATELET VOLUME 10.6 cmc (9.4-12.4); MONO % 4.3 % (0-12); MONOCYTE ABSOLUTE COUNT 0.5 tho/cmm (0.0-1.2); NEUTROPHIL ABSOLUTE COUNT 10.6 tho/cmm (1.6-8.0); NEUTROPHIL-AUTOMATED 10.6 tho/cmm (1.6-8.0); NEUTROPHILS % 90.8 % (40-80); PLATELET COUNT 119 tho/cmm (150-450); RED BLOOD COUNT 3.68 mil/cmm (4.40-5.70); RED CELL DISTRIBUTION WIDTH 14.7 % (12.4-16.4); WHITE BLOOD COUNT 11.7 tho/cmm (4.0-10.0)
[2017-01-09 04:36] LABS: INR 3.7 INR (0.9-1.1); PROTHROMBIN TIME 44.4 SECONDS (9.0-13.6)
[2017-01-09 04:51] LABS: ALB/GLOB RATIO 1.1 (0.8-2.0); ALBUMIN 3.1 g/dl (3.5-5.0); ALKALINE PHOSPHATASE 93 U/L (33-138); ANION GAP 18 mmol/L (0-20); BLOOD UREA NITROGEN 59 mg/dl (6-24); CALCIUM 7.6 mg/dl (8.5-10.5); CARBON DIOXIDE-VENOUS 23 mmol/L (22-32); CHLORIDE 97 mmol/l (96-110); CREATININE 3.76 mg/dl (0.60-1.30); GLUCOSE 135 mg/dL (70-110); MAGNESIUM 1.9 mg/dl (1.8-2.6); PHOSPHOROUS 5.2 mg/dl (2.5-4.9); POTASSIUM 4.4 mmol/L (3.7-5.1); SODIUM 134 mmol/L (135-145); eGFR VALUE FOR BLACK 19 mL/Min
[2017-01-09 05:01] LABS: BILIRUBIN,TOTAL 5.2 mg/dl (0.0-1.5)
[2017-01-09 05:02] LABS: ALT/SGPT 5407 U/L (12-78); AST/SGOT 3370 U/L (10-40)
[2017-01-09 05:48] LABS: ABG CO2 ARTERIAL 22 mmol/L (21-27); ARTERIAL BLD GAS O2 SATURATION 97 % (95-98); ARTERIAL BLOOD GAS PCO2 27 mmHg (32-45); ARTERIAL PO2 96 mmHg (70-100); BICARBONATE 21 mmol/L (21-28); BLOOD GAS BASE EXCESS -1 mM/L (-/+3)
[2017-01-09 12:26] LABS: ABG CO2 ARTERIAL 22 mmol/L (21-27); ARTERIAL BLD GAS O2 SATURATION 98 % (95-98); BICARBONATE 21 mmol/L (21-28); BLOOD GAS BASE EXCESS -3 mM/L (-/+3)
[2017-01-09 12:27] LABS: ARTERIAL BLOOD GAS PCO2 34 mmHg (32-45); ARTERIAL PO2 119 mmHg (70-100); BASO % 0.1 % (0-2); HCT-HEMATOCRIT 33.3 % (36.0-53.5); HGB-HEMOGLOBIN 11.2 gm/dl (13.5-17.0); IMMATURE GRANULOCYTES ABSOLUTE 0.08 tho/cmm (0-0.03); IMMATURE GRANULOCYTES PERCENT 0.7 % (0-0.3); LYMPH % 2.2 % (20-45); LYMPH ABSOLUTE COUNT 0.3 tho/cmm (0.8-4.5); MCH (MEAN CORPUSCULAR HGB) 29.6 pg (28.0-32.0); MCHC MEAN CORPUSCULAR HGB CONC 33.6 % (32.0-36.0); MCV (MEAN CELL VOLUME) 87.9 fl (82.0-96.0); MEAN PLATELET VOLUME 9.9 cmc (9.4-12.4); MONO % 4.4 % (0-12); MONOCYTE ABSOLUTE COUNT 0.5 tho/cmm (0.0-1.2); NEUTROPHIL ABSOLUTE COUNT 10.6 tho/cmm (1.6-8.0); NEUTROPHIL-AUTOMATED 10.6 tho/cmm (1.6-8.0); NEUTROPHILS % 92.6 % (40-80); PLATELET COUNT 123 tho/cmm (150-450); RED BLOOD COUNT 3.79 mil/cmm (4.40-5.70); RED CELL DISTRIBUTION WIDTH 14.7 % (12.4-16.4); WHITE BLOOD COUNT 11.5 tho/cmm (4.0-10.0)
[2017-01-09 12:50] LABS: ANION GAP 19 mmol/L (0-20); BLOOD UREA NITROGEN 53 mg/dl (6-24); CALCIUM 7.6 mg/dl (8.5-10.5); CARBON DIOXIDE-VENOUS 21 mmol/L (22-32); CHLORIDE 99 mmol/l (96-110); CREATININE 3.33 mg/dl (0.60-1.30); GLUCOSE 195 mg/dL (70-110); PHOSPHOROUS 4.6 mg/dl (2.5-4.9); POTASSIUM 4.8 mmol/L (3.7-5.1); SODIUM 134 mmol/L (135-145); eGFR VALUE FOR BLACK 23 mL/Min
[2017-01-09 18:26] LABS: BASO % 0.1 % (0-2); HCT-HEMATOCRIT 33.7 % (36.0-53.5); HGB-HEMOGLOBIN 11.4 gm/dl (13.5-17.0); IMMATURE GRANULOCYTES ABSOLUTE 0.08 tho/cmm (0-0.03); IMMATURE GRANULOCYTES PERCENT 0.7 % (0-0.3); LYMPH % 2.7 % (20-45); LYMPH ABSOLUTE COUNT 0.3 tho/cmm (0.8-4.5); MCH (MEAN CORPUSCULAR HGB) 29.8 pg (28.0-32.0); MCHC MEAN CORPUSCULAR HGB CONC 33.8 % (32.0-36.0); MEAN PLATELET VOLUME 10.3 cmc (9.4-12.4); MONO % 4.1 % (0-12); MONOCYTE ABSOLUTE COUNT 0.5 tho/cmm (0.0-1.2); NEUTROPHIL ABSOLUTE COUNT 10.9 tho/cmm (1.6-8.0); NEUTROPHIL-AUTOMATED 10.9 tho/cmm (1.6-8.0); NEUTROPHILS % 92.4 % (40-80); PLATELET COUNT 123 tho/cmm (150-450); RED BLOOD COUNT 3.83 mil/cmm (4.40-5.70); RED CELL DISTRIBUTION WIDTH 14.9 % (12.4-16.4); WHITE BLOOD COUNT 11.8 tho/cmm (4.0-10.0)
[2017-01-09 18:28] LABS: INR 3.5 INR (0.9-1.1); PROTHROMBIN TIME 42.1 SECONDS (9.0-13.6)
[2017-01-09 18:42] LABS: ALB/GLOB RATIO 1.1 (0.8-2.0); ALBUMIN 3.2 g/dl (3.5-5.0); ALKALINE PHOSPHATASE 108 U/L (33-138); ANION GAP 16 mmol/L (0-20); BILIRUBIN,DIRECT 4.1 mg/dl (0.0-0.3); BILIRUBIN,INDIRECT 1.9 mg/dL (0.0-1.0); BLOOD UREA NITROGEN 48 mg/dl (6-24); CALCIUM 7.9 mg/dl (8.5-10.5); CARBON DIOXIDE-VENOUS 23 mmol/L (22-32); CHLORIDE 101 mmol/l (96-110); CREATININE 3.02 mg/dl (0.60-1.30); GLUCOSE 202 mg/dL (70-110); MAGNESIUM 2.1 mg/dl (1.8-2.6); PHOSPHOROUS 4.7 mg/dl (2.5-4.9); POTASSIUM 4.4 mmol/L (3.7-5.1); SODIUM 136 mmol/L (135-145); eGFR VALUE FOR BLACK 25 mL/Min
[2017-01-09 19:01] LABS: ALT/SGPT 4563 U/L (12-78); AST/SGOT 1881 U/L (10-40)
[2017-01-10 00:17] LABS: ABG CO2 ARTERIAL 21 mmol/L (21-27); ARTERIAL BLD GAS O2 SATURATION 97 % (95-98); ARTERIAL BLOOD GAS PCO2 35 mmHg (32-45); BICARBONATE 20 mmol/L (21-28); BLOOD GAS BASE EXCESS -4 mM/L (-/+3); PH 7.38 Units (7.35-7.45)
[2017-01-10 00:29] LABS: BASO % 0.1 % (0-2); HCT-HEMATOCRIT 34.8 % (36.0-53.5); HGB-HEMOGLOBIN 11.5 gm/dl (13.5-17.0); IMMATURE GRANULOCYTES ABSOLUTE 0.11 tho/cmm (0-0.03); IMMATURE GRANULOCYTES PERCENT 0.8 % (0-0.3); LYMPH % 2.4 % (20-45); LYMPH ABSOLUTE COUNT 0.3 tho/cmm (0.8-4.5); MCH (MEAN CORPUSCULAR HGB) 29.4 pg (28.0-32.0); MONO % 3.6 % (0-12); MONOCYTE ABSOLUTE COUNT 0.5 tho/cmm (0.0-1.2); NEUTROPHIL ABSOLUTE COUNT 12.5 tho/cmm (1.6-8.0); NEUTROPHIL-AUTOMATED 12.5 tho/cmm (1.6-8.0); NEUTROPHILS % 93.1 % (40-80); PLATELET COUNT 129 tho/cmm (150-450); RED BLOOD COUNT 3.91 mil/cmm (4.40-5.70); RED CELL DISTRIBUTION WIDTH 14.9 % (12.4-16.4); WHITE BLOOD COUNT 13.5 tho/cmm (4.0-10.0)
[2017-01-10 00:30] LABS: ARTERIAL PO2 98 mmHg (70-100)
[2017-01-10 00:34] LABS: ANION GAP 18 mmol/L (0-20); BLOOD UREA NITROGEN 46 mg/dl (6-24); CALCIUM 7.9 mg/dl (8.5-10.5); CARBON DIOXIDE-VENOUS 21 mmol/L (22-32); CHLORIDE 101 mmol/l (96-110); CREATININE 2.77 mg/dl (0.60-1.30); GLUCOSE 281 mg/dL (70-110); MAGNESIUM 2.1 mg/dl (1.8-2.6); PHOSPHOROUS 4.2 mg/dl (2.5-4.9); POTASSIUM 3.9 mmol/L (3.7-5.1); SODIUM 136 mmol/L (135-145); eGFR VALUE FOR BLACK 28 mL/Min
[2017-01-10 05:19] LABS: ABG CO2 ARTERIAL 22 mmol/L (21-27); ARTERIAL BLD GAS O2 SATURATION 98 % (95-98); ARTERIAL BLOOD GAS PCO2 36 mmHg (32-45); ARTERIAL PO2 104 mmHg (70-100); BICARBONATE 21 mmol/L (21-28); BLOOD GAS BASE EXCESS -4 mM/L (-/+3); PH 7.38 Units (7.35-7.45)
[2017-01-10 05:52] LABS: HCT-HEMATOCRIT 33.9 % (36.0-53.5); HGB-HEMOGLOBIN 11.5 gm/dl (13.5-17.0); IMMATURE GRANULOCYTES ABSOLUTE 0.12 tho/cmm (0-0.03); IMMATURE GRANULOCYTES PERCENT 0.8 % (0-0.3); LYMPH % 3.6 % (20-45); LYMPH ABSOLUTE COUNT 0.5 tho/cmm (0.8-4.5); MCH (MEAN CORPUSCULAR HGB) 29.8 pg (28.0-32.0); MCHC MEAN CORPUSCULAR HGB CONC 33.9 % (32.0-36.0); MCV (MEAN CELL VOLUME) 87.8 fl (82.0-96.0); MEAN PLATELET VOLUME 9.9 cmc (9.4-12.4); MONOCYTE ABSOLUTE COUNT 0.4 tho/cmm (0.0-1.2); NEUTROPHIL ABSOLUTE COUNT 13.2 tho/cmm (1.6-8.0); NEUTROPHIL-AUTOMATED 13.2 tho/cmm (1.6-8.0); NEUTROPHILS % 92.6 % (40-80); PLATELET COUNT 122 tho/cmm (150-450); RED BLOOD COUNT 3.86 mil/cmm (4.40-5.70); WHITE BLOOD COUNT 14.2 tho/cmm (4.0-10.0)
[2017-01-10 05:56] LABS: INR 3.2 INR (0.9-1.1); PROTHROMBIN TIME 38.6 SECONDS (9.0-13.6)
[2017-01-10 06:10] LABS: ALBUMIN 3.1 g/dl (3.5-5.0); ALKALINE PHOSPHATASE 122 U/L (33-138); ANION GAP 16 mmol/L (0-20); BILIRUBIN,TOTAL 6.1 mg/dl (0.0-1.5); BLOOD UREA NITROGEN 45 mg/dl (6-24); CALCIUM 7.8 mg/dl (8.5-10.5); CARBON DIOXIDE-VENOUS 22 mmol/L (22-32); CHLORIDE 104 mmol/l (96-110); CREATININE 2.58 mg/dl (0.60-1.30); GLUCOSE 256 mg/dL (70-110); MAGNESIUM 2.2 mg/dl (1.8-2.6); PHOSPHOROUS 3.5 mg/dl (2.5-4.9); POTASSIUM 3.9 mmol/L (3.7-5.1); SODIUM 138 mmol/L (135-145); eGFR VALUE FOR BLACK 31 mL/Min
[2017-01-10 06:19] LABS: ALT/SGPT 3959 U/L (12-78); AST/SGOT 1164 U/L (10-40)
[2017-01-10 12:20] LABS: ANION GAP 15 mmol/L (0-20); BLOOD UREA NITROGEN 43 mg/dl (6-24); CALCIUM 7.9 mg/dl (8.5-10.5); CARBON DIOXIDE-VENOUS 22 mmol/L (22-32); CHLORIDE 105 mmol/l (96-110); CREATININE 2.28 mg/dl (0.60-1.30); GLUCOSE 251 mg/dL (70-110); MAGNESIUM 2.1 mg/dl (1.8-2.6); PHOSPHOROUS 3.4 mg/dl (2.5-4.9); POTASSIUM 3.6 mmol/L (3.7-5.1); SODIUM 138 mmol/L (135-145); eGFR VALUE FOR BLACK 36 mL/Min
--- NOTE | 2017-01-10 17:52 | NUR ---
01/10 @ 7183 REVIEVED AND AGREE WITH SAVANNA PEREZ, STUDENT RN CHARTING FOR PATIENT. CAMMIE SPAIN, NICHOLAS.
[2017-01-10 18:14] LABS: BASO % 0.1 % (0-2); HCT-HEMATOCRIT 34.8 % (36.0-53.5); HGB-HEMOGLOBIN 11.5 gm/dl (13.5-17.0); IMMATURE GRANULOCYTES ABSOLUTE 0.15 tho/cmm (0-0.03); LYMPH % 1.6 % (20-45); LYMPH ABSOLUTE COUNT 0.2 tho/cmm (0.8-4.5); MCH (MEAN CORPUSCULAR HGB) 29.3 pg (28.0-32.0); MCV (MEAN CELL VOLUME) 88.5 fl (82.0-96.0); MEAN PLATELET VOLUME 9.8 cmc (9.4-12.4); MONOCYTE ABSOLUTE COUNT 0.7 tho/cmm (0.0-1.2); NEUTROPHIL ABSOLUTE COUNT 13.6 tho/cmm (1.6-8.0); NEUTROPHIL-AUTOMATED 13.6 tho/cmm (1.6-8.0); NEUTROPHILS % 92.3 % (40-80); PLATELET COUNT 125 tho/cmm (150-450); RED BLOOD COUNT 3.93 mil/cmm (4.40-5.70); RED CELL DISTRIBUTION WIDTH 14.9 % (12.4-16.4); WHITE BLOOD COUNT 14.8 tho/cmm (4.0-10.0)
[2017-01-10 18:32] LABS: ALB/GLOB RATIO 1.1 (0.8-2.0); ALKALINE PHOSPHATASE 131 U/L (33-138); ANION GAP 14 mmol/L (0-20); AST/SGOT 711 U/L (10-40); BILIRUBIN,DIRECT 4.4 mg/dl (0.0-0.3); BILIRUBIN,INDIRECT 1.6 mg/dL (0.0-1.0); BLOOD UREA NITROGEN 41 mg/dl (6-24); CALCIUM 7.8 mg/dl (8.5-10.5); CARBON DIOXIDE-VENOUS 23 mmol/L (22-32); CHLORIDE 106 mmol/l (96-110); CREATININE 2.21 mg/dl (0.60-1.30); GLUCOSE 250 mg/dL (70-110); MAGNESIUM 2.2 mg/dl (1.8-2.6); PHOSPHOROUS 2.8 mg/dl (2.5-4.9); POTASSIUM 3.5 mmol/L (3.7-5.1); SODIUM 139 mmol/L (135-145); eGFR VALUE FOR BLACK 37 mL/Min
[2017-01-10 18:35] LABS: ALT/SGPT 3444 U/L (12-78)
[2017-01-11 00:30] LABS: ANION GAP 16 mmol/L (0-20); BLOOD UREA NITROGEN 40 mg/dl (6-24); CALCIUM 7.9 mg/dl (8.5-10.5); CARBON DIOXIDE-VENOUS 21 mmol/L (22-32); CHLORIDE 104 mmol/l (96-110); GLUCOSE 275 mg/dL (70-110); PHOSPHOROUS 2.7 mg/dl (2.5-4.9); POTASSIUM 3.4 mmol/L (3.7-5.1); SODIUM 138 mmol/L (135-145); eGFR VALUE FOR BLACK 37 mL/Min
[2017-01-11 05:24] LABS: ABG CO2 ARTERIAL 20 mmol/L (21-27); ARTERIAL BLD GAS O2 SATURATION 97 % (95-98); ARTERIAL BLOOD GAS PCO2 34 mmHg (32-45); ARTERIAL PO2 98 mmHg (70-100); BICARBONATE 19 mmol/L (21-28); BLOOD GAS BASE EXCESS -5 mM/L (-/+3); PH 7.38 Units (7.35-7.45)
[2017-01-11 05:46] LABS: BASO % 0.1 % (0-2); HCT-HEMATOCRIT 34.9 % (36.0-53.5); HGB-HEMOGLOBIN 11.7 gm/dl (13.5-17.0); IMMATURE GRANULOCYTES ABSOLUTE 0.22 tho/cmm (0-0.03); IMMATURE GRANULOCYTES PERCENT 1.3 % (0-0.3); LYMPH % 4.3 % (20-45); LYMPH ABSOLUTE COUNT 0.7 tho/cmm (0.8-4.5); MCH (MEAN CORPUSCULAR HGB) 29.6 pg (28.0-32.0); MCHC MEAN CORPUSCULAR HGB CONC 33.5 % (32.0-36.0); MCV (MEAN CELL VOLUME) 88.4 fl (82.0-96.0); MEAN PLATELET VOLUME 10.1 cmc (9.4-12.4); MONO % 2.5 % (0-12); MONOCYTE ABSOLUTE COUNT 0.4 tho/cmm (0.0-1.2); NEUTROPHIL ABSOLUTE COUNT 15.7 tho/cmm (1.6-8.0); NEUTROPHIL-AUTOMATED 15.7 tho/cmm (1.6-8.0); NEUTROPHILS % 91.8 % (40-80); PLATELET COUNT 130 tho/cmm (150-450); RED BLOOD COUNT 3.95 mil/cmm (4.40-5.70); RED CELL DISTRIBUTION WIDTH 14.9 % (12.4-16.4); WHITE BLOOD COUNT 17.1 tho/cmm (4.0-10.0)
[2017-01-11 05:53] LABS: FIBRINOGEN 194 mg/dl (200-400)
[2017-01-11 06:07] LABS: INR 2.4 INR (0.9-1.1); PROTHROMBIN TIME 29.1 SECONDS (9.0-13.6)
[2017-01-11 06:11] LABS: ALBUMIN 2.9 g/dl (3.5-5.0); ALKALINE PHOSPHATASE 145 U/L (33-138); AST/SGOT 522 U/L (10-40); BILIRUBIN,TOTAL 5.8 mg/dl (0.0-1.5); BLOOD UREA NITROGEN 43 mg/dl (6-24); CALCIUM 7.7 mg/dl (8.5-10.5); CHLORIDE 106 mmol/l (96-110); CREATININE 2.32 mg/dl (0.60-1.30); GLUCOSE 266 mg/dL (70-110); MAGNESIUM 1.8 mg/dl (1.8-2.6); PHOSPHOROUS 2.6 mg/dl (2.5-4.9); POTASSIUM 3.6 mmol/L (3.7-5.1); SODIUM 139 mmol/L (135-145); eGFR VALUE FOR BLACK 35 mL/Min
[2017-01-11 06:13] LABS: CARBON DIOXIDE-VENOUS 19 mmol/L (22-32)
[2017-01-11 06:14] LABS: ALT/SGPT 3035 U/L (12-78); ANION GAP 18 mmol/L (0-20)
[2017-01-11 12:17] LABS: BLOOD UREA NITROGEN 38 mg/dl (6-24); CARBON DIOXIDE-VENOUS 24 mmol/L (22-32); CHLORIDE 105 mmol/l (96-110); CREATININE 1.99 mg/dl (0.60-1.30); GLUCOSE 213 mg/dL (70-110); PHOSPHOROUS 2.5 mg/dl (2.5-4.9); SODIUM 140 mmol/L (135-145); eGFR VALUE FOR BLACK 42 mL/Min
[2017-01-11 12:22] LABS: ANION GAP 15 mmol/L (0-20); MAGNESIUM 2.8 mg/dl (1.8-2.6); POTASSIUM 3.5 mmol/L (3.7-5.1)
[2017-01-11 12:46] LABS: URINE LEUKOCYTE ESTERASE POSITIVE (NEG); URINE PROTEIN MODERATE (NEG)
[2017-01-11 12:47] LABS: URINE APPEARANCE CLOUDY; URINE BILIRUBIN NEGATIVE (NEG); URINE BLOOD LARGE (NEG); URINE COLOR BROWN; URINE GLUCOSE (UA) MODERATE (NEG); URINE KETONE SMALL (NEG); URINE NITRITE POSITIVE (NEG)
[2017-01-11 12:56] LABS: URINE AMORPHOUS 1+; URINE BACTERIA 3+; URINE RBC 90-100 /[HPF] (0-5); URINE WBC 20-25 /[HPF] (0-5)
[2017-01-11 18:17] LABS: BASO % 0.1 % (0-2); HCT-HEMATOCRIT 34.9 % (36.0-53.5); HGB-HEMOGLOBIN 11.7 gm/dl (13.5-17.0); IMMATURE GRANULOCYTES ABSOLUTE 0.25 tho/cmm (0-0.03); IMMATURE GRANULOCYTES PERCENT 1.6 % (0-0.3); LYMPH % 2.4 % (20-45); LYMPH ABSOLUTE COUNT 0.4 tho/cmm (0.8-4.5); MCH (MEAN CORPUSCULAR HGB) 29.6 pg (28.0-32.0); MCHC MEAN CORPUSCULAR HGB CONC 33.5 % (32.0-36.0); MCV (MEAN CELL VOLUME) 88.4 fl (82.0-96.0); MEAN PLATELET VOLUME 9.8 cmc (9.4-12.4); MONOCYTE ABSOLUTE COUNT 0.8 tho/cmm (0.0-1.2); NEUTROPHIL ABSOLUTE COUNT 13.9 tho/cmm (1.6-8.0); NEUTROPHIL-AUTOMATED 13.9 tho/cmm (1.6-8.0); NEUTROPHILS % 90.9 % (40-80); PLATELET COUNT 103 tho/cmm (150-450); RED BLOOD COUNT 3.95 mil/cmm (4.40-5.70); WHITE BLOOD COUNT 15.3 tho/cmm (4.0-10.0)
[2017-01-11 18:41] LABS: ALBUMIN 2.9 g/dl (3.5-5.0); ALKALINE PHOSPHATASE 135 U/L (33-138); ANION GAP 17 mmol/L (0-20); AST/SGOT 299 U/L (10-40); BILIRUBIN,INDIRECT 1.2 mg/dL (0.0-1.0); BILIRUBIN,TOTAL 5.2 mg/dl (0.0-1.5); BLOOD UREA NITROGEN 37 mg/dl (6-24); CALCIUM 7.7 mg/dl (8.5-10.5); CHLORIDE 105 mmol/l (96-110); CREATININE 1.73 mg/dl (0.60-1.30); GLUCOSE 246 mg/dL (70-110); MAGNESIUM 2.4 mg/dl (1.8-2.6); PHOSPHOROUS 2.9 mg/dl (2.5-4.9); POTASSIUM 3.7 mmol/L (3.7-5.1); SODIUM 139 mmol/L (135-145); eGFR VALUE FOR BLACK 50 mL/Min
[2017-01-11 18:42] LABS: ALT/SGPT 2426 U/L (12-78)
[2017-01-11 18:43] LABS: CARBON DIOXIDE-VENOUS 21 mmol/L (22-32)
[2017-01-12 00:38] LABS: ANION GAP 17 mmol/L (0-20); BLOOD UREA NITROGEN 39 mg/dl (6-24); CALCIUM 7.9 mg/dl (8.5-10.5); CARBON DIOXIDE-VENOUS 21 mmol/L (22-32); CHLORIDE 104 mmol/l (96-110); CREATININE 1.89 mg/dl (0.60-1.30); GLUCOSE 306 mg/dL (70-110); MAGNESIUM 2.3 mg/dl (1.8-2.6); POTASSIUM 3.7 mmol/L (3.7-5.1); SODIUM 138 mmol/L (135-145); eGFR VALUE FOR BLACK 45 mL/Min
[2017-01-12 05:40] LABS: ABG CO2 ARTERIAL 21 mmol/L (21-27); ARTERIAL BLD GAS O2 SATURATION 98 % (95-98); ARTERIAL BLOOD GAS PCO2 36 mmHg (32-45); ARTERIAL PO2 102 mmHg (70-100); BICARBONATE 20 mmol/L (21-28); BLOOD GAS BASE EXCESS -4 mM/L (-/+3); PH 7.37 Units (7.35-7.45)
[2017-01-12 05:41] LABS: BASO % 0.1 % (0-2); HCT-HEMATOCRIT 35.2 % (36.0-53.5); HGB-HEMOGLOBIN 11.9 gm/dl (13.5-17.0); IMMATURE GRANULOCYTES ABSOLUTE 0.53 tho/cmm (0-0.03); IMMATURE GRANULOCYTES PERCENT 3.3 % (0-0.3); LYMPH % 1.6 % (20-45); LYMPH ABSOLUTE COUNT 0.3 tho/cmm (0.8-4.5); MCH (MEAN CORPUSCULAR HGB) 29.8 pg (28.0-32.0); MCHC MEAN CORPUSCULAR HGB CONC 33.8 % (32.0-36.0); MEAN PLATELET VOLUME 10.2 cmc (9.4-12.4); MONO % 6.1 % (0-12); NEUTROPHIL ABSOLUTE COUNT 14.3 tho/cmm (1.6-8.0); NEUTROPHIL-AUTOMATED 14.3 tho/cmm (1.6-8.0); NEUTROPHILS % 88.9 % (40-80); PLATELET COUNT 122 tho/cmm (150-450); WHITE BLOOD COUNT 16.1 tho/cmm (4.0-10.0)
[2017-01-12 05:47] LABS: FIBRINOGEN 139 mg/dl (200-400)
[2017-01-12 05:48] LABS: INR 1.9 INR (0.9-1.1)
[2017-01-12 05:51] LABS: PROTHROMBIN TIME 22.1 SECONDS (9.0-13.6)
[2017-01-12 06:00] LABS: ALBUMIN 2.9 g/dl (3.5-5.0); ALKALINE PHOSPHATASE 140 U/L (33-138); ANION GAP 16 mmol/L (0-20); AST/SGOT 232 U/L (10-40); BILIRUBIN,DIRECT 3.3 mg/dl (0.0-0.3); BILIRUBIN,INDIRECT 1.2 mg/dL (0.0-1.0); BILIRUBIN,TOTAL 4.5 mg/dl (0.0-1.5); BLOOD UREA NITROGEN 43 mg/dl (6-24); CALCIUM 7.7 mg/dl (8.5-10.5); CARBON DIOXIDE-VENOUS 20 mmol/L (22-32); CHLORIDE 107 mmol/l (96-110); GLUCOSE 311 mg/dL (70-110); MAGNESIUM 2.2 mg/dl (1.8-2.6); PHOSPHOROUS 3.1 mg/dl (2.5-4.9); POTASSIUM 3.6 mmol/L (3.7-5.1); PREALBUMIN 13.7 mg/dl (20.0-40.0); SODIUM 139 mmol/L (135-145); eGFR VALUE FOR BLACK 42 mL/Min
[2017-01-12 06:08] LABS: ALT/SGPT 2154 U/L (12-78)
[2017-01-12 13:33] LABS: ALB/GLOB RATIO 0.9 (0.8-2.0); ALBUMIN 2.8 g/dl (3.5-5.0); ALKALINE PHOSPHATASE 130 U/L (33-138); BILIRUBIN,DIRECT 2.9 mg/dl (0.0-0.3); BILIRUBIN,INDIRECT 1.2 mg/dL (0.0-1.0); BILIRUBIN,TOTAL 4.1 mg/dl (0.0-1.5); BLOOD UREA NITROGEN 61 mg/dl (6-24); CALCIUM 8.1 mg/dl (8.5-10.5); CARBON DIOXIDE-VENOUS 21 mmol/L (22-32); CHLORIDE 104 mmol/l (96-110); GLUCOSE 327 mg/dL (70-110); SODIUM 137 mmol/L (135-145)
[2017-01-12 14:18] LABS: ALT/SGPT 1844 U/L (12-78); ANION GAP 16 mmol/L (0-20); AST/SGOT 177 U/L (10-40); CREATININE 2.57 mg/dl (0.60-1.30); MAGNESIUM 2.3 mg/dl (1.8-2.6); POTASSIUM 3.9 mmol/L (3.7-5.1); eGFR VALUE FOR BLACK 31 mL/Min
[2017-01-12 18:33] LABS: ANION GAP 15 mmol/L (0-20); BLOOD UREA NITROGEN 53 mg/dl (6-24); CALCIUM 7.6 mg/dl (8.5-10.5); CARBON DIOXIDE-VENOUS 21 mmol/L (22-32); CHLORIDE 105 mmol/l (96-110); GLUCOSE 326 mg/dL (70-110); MAGNESIUM 2.1 mg/dl (1.8-2.6); PHOSPHOROUS 3.3 mg/dl (2.5-4.9); POTASSIUM 3.6 mmol/L (3.7-5.1); SODIUM 137 mmol/L (135-145); eGFR VALUE FOR BLACK 37 mL/Min
[2017-01-13 00:40] LABS: ANION GAP 15 mmol/L (0-20); BLOOD UREA NITROGEN 50 mg/dl (6-24); CALCIUM 7.5 mg/dl (8.5-10.5); CARBON DIOXIDE-VENOUS 21 mmol/L (22-32); CHLORIDE 105 mmol/l (96-110); CREATININE 1.86 mg/dl (0.60-1.30); GLUCOSE 301 mg/dL (70-110); PHOSPHOROUS 3.6 mg/dl (2.5-4.9); POTASSIUM 3.6 mmol/L (3.7-5.1); SODIUM 137 mmol/L (135-145); eGFR VALUE FOR BLACK 46 mL/Min
[2017-01-13 05:12] LABS: ABG CO2 ARTERIAL 22 mmol/L (21-27); ARTERIAL BLD GAS O2 SATURATION 97 % (95-98); ARTERIAL BLOOD GAS PCO2 37 mmHg (32-45); ARTERIAL PO2 93 mmHg (70-100); BICARBONATE 21 mmol/L (21-28); BLOOD GAS BASE EXCESS -4 mM/L (-/+3); PH 7.37 Units (7.35-7.45)
[2017-01-13 05:52] LABS: HCT-HEMATOCRIT 36.8 % (36.0-53.5); HGB-HEMOGLOBIN 12.3 gm/dl (13.5-17.0); MCH (MEAN CORPUSCULAR HGB) 29.5 pg (28.0-32.0); MCHC MEAN CORPUSCULAR HGB CONC 33.4 % (32.0-36.0); MCV (MEAN CELL VOLUME) 88.2 fl (82.0-96.0); MEAN PLATELET VOLUME 10.2 cmc (9.4-12.4); NEUTROPHIL-AUTOMATED 15.6 tho/cmm (1.6-8.0); PLATELET COUNT 129 tho/cmm (150-450); RED BLOOD COUNT 4.17 mil/cmm (4.40-5.70); RED CELL DISTRIBUTION WIDTH 15.3 % (12.4-16.4); WHITE BLOOD COUNT 17.9 tho/cmm (4.0-10.0)
[2017-01-13 06:02] LABS: INR 1.6 INR (0.9-1.1); PROTHROMBIN TIME 18.6 SECONDS (9.0-13.6)
[2017-01-13 06:13] LABS: ALBUMIN 2.9 g/dl (3.5-5.0); ALKALINE PHOSPHATASE 137 U/L (33-138); BILIRUBIN,TOTAL 4.8 mg/dl (0.0-1.5); BLOOD UREA NITROGEN 49 mg/dl (6-24); CALCIUM 7.8 mg/dl (8.5-10.5); CARBON DIOXIDE-VENOUS 20 mmol/L (22-32); CHLORIDE 106 mmol/l (96-110); CREATININE 1.95 mg/dl (0.60-1.30); GLUCOSE 275 mg/dL (70-110); PHOSPHOROUS 3.1 mg/dl (2.5-4.9); SODIUM 138 mmol/L (135-145); eGFR VALUE FOR BLACK 43 mL/Min
[2017-01-13 06:17] LABS: ALT/SGPT 1618 U/L (12-78); ANION GAP 16 mmol/L (0-20); AST/SGOT 136 U/L (10-40); POTASSIUM 3.8 mmol/L (3.7-5.1)
[2017-01-13 07:02] LABS: BAND % 5 % (0-20); BAND ABSOLUTE COUNT 0.9 tho/cmm (0-2.0)
[2017-01-13 07:03] LABS: WBC MORPHOLOGY VACUOLES
[2017-01-14 05:19] LABS: ABG CO2 ARTERIAL 18 mmol/L (21-27); ARTERIAL BLD GAS O2 SATURATION 98 % (95-98); ARTERIAL BLOOD GAS PCO2 31 mmHg (32-45); BICARBONATE 17 mmol/L (21-28); BLOOD GAS BASE EXCESS -7 mM/L (-/+3); PH 7.36 Units (7.35-7.45)
[2017-01-14 05:23] LABS: INR 1.5 INR (0.9-1.1); PROTHROMBIN TIME 17.6 SECONDS (9.0-13.6)
[2017-01-14 05:27] LABS: HCT-HEMATOCRIT 35.5 % (36.0-53.5); MCH (MEAN CORPUSCULAR HGB) 29.6 pg (28.0-32.0); MCHC MEAN CORPUSCULAR HGB CONC 33.8 % (32.0-36.0); MCV (MEAN CELL VOLUME) 87.4 fl (82.0-96.0); MEAN PLATELET VOLUME 9.9 cmc (9.4-12.4); NEUTROPHIL-AUTOMATED 17.9 tho/cmm (1.6-8.0); PLATELET COUNT 147 tho/cmm (150-450); RED BLOOD COUNT 4.06 mil/cmm (4.40-5.70); RED CELL DISTRIBUTION WIDTH 15.7 % (12.4-16.4); WHITE BLOOD COUNT 21.4 tho/cmm (4.0-10.0)
[2017-01-14 05:38] LABS: ARTERIAL PO2 105 mmHg (70-100)
[2017-01-14 05:48] LABS: CHLORIDE 102 mmol/l (96-110); POTASSIUM 3.8 mmol/L (3.7-5.1); SODIUM 138 mmol/L (135-145)
[2017-01-14 06:05] LABS: ALB/GLOB RATIO 0.9 (0.8-2.0); ALBUMIN 2.7 g/dl (3.5-5.0); ALKALINE PHOSPHATASE 130 U/L (33-138); ANION GAP 20 mmol/L (0-20); AST/SGOT 97 U/L (10-40); BILIRUBIN,TOTAL 5.7 mg/dl (0.0-1.5); CALCIUM 8.2 mg/dl (8.5-10.5); CARBON DIOXIDE-VENOUS 20 mmol/L (22-32); GLUCOSE 293 mg/dL (70-110)
[2017-01-14 06:20] LABS: ALT/SGPT 1131 U/L (12-78); BLOOD UREA NITROGEN 90 mg/dl (6-24); CREATININE 3.54 mg/dl (0.60-1.30); eGFR VALUE FOR BLACK 21 mL/Min
[2017-01-14 07:32] LABS: BAND % 7 % (0-20); BAND ABSOLUTE COUNT 1.5 tho/cmm (0-2.0); WBC MORPHOLOGY VACUOLES
[2017-01-15 04:53] LABS: INR 1.4 INR (0.9-1.1); PROTHROMBIN TIME 16.1 SECONDS (9.0-13.6)
[2017-01-15 05:20] LABS: HCT-HEMATOCRIT 37.8 % (36.0-53.5); HGB-HEMOGLOBIN 12.9 gm/dl (13.5-17.0); MCH (MEAN CORPUSCULAR HGB) 29.7 pg (28.0-32.0); MCHC MEAN CORPUSCULAR HGB CONC 34.1 % (32.0-36.0); MCV (MEAN CELL VOLUME) 86.9 fl (82.0-96.0); MEAN PLATELET VOLUME 10.1 cmc (9.4-12.4); NEUTROPHIL-AUTOMATED 19.4 tho/cmm (1.6-8.0); PLATELET COUNT 131 tho/cmm (150-450); RED BLOOD COUNT 4.35 mil/cmm (4.40-5.70); RED CELL DISTRIBUTION WIDTH 15.9 % (12.4-16.4); WHITE BLOOD COUNT 23.2 tho/cmm (4.0-10.0)
[2017-01-15 05:25] LABS: BASO % 0.2 % (0-2); BASO ABSOLUTE COUNT 0.1 tho/cmm (0.0-0.2); EOS % 0.3 % (0-7); EOSINOPHIL ABSOLUTE COUNT 0.1 tho/cmm (0.0-0.7); IMMATURE GRANULOCYTES ABSOLUTE 1.38 tho/cmm (0-0.03); IMMATURE GRANULOCYTES PERCENT 5.9 % (0-0.3); LYMPH % 1.6 % (20-45); LYMPH ABSOLUTE COUNT 0.4 tho/cmm (0.8-4.5); MONO % 8.3 % (0-12); MONOCYTE ABSOLUTE COUNT 1.9 tho/cmm (0.0-1.2); NEUTROPHIL ABSOLUTE COUNT 19.4 tho/cmm (1.6-8.0); NEUTROPHILS % 83.7 % (40-80)
[2017-01-15 05:31] LABS: ALBUMIN 2.8 g/dl (3.5-5.0); ANION GAP 18 mmol/L (0-20); BLOOD UREA NITROGEN 75 mg/dl (6-24); CALCIUM 8.6 mg/dl (8.5-10.5); CARBON DIOXIDE-VENOUS 21 mmol/L (22-32); CHLORIDE 99 mmol/l (96-110); CREATININE 3.83 mg/dl (0.60-1.30); GLUCOSE 210 mg/dL (70-110); MAGNESIUM 2.2 mg/dl (1.8-2.6); PHOSPHOROUS 5.6 mg/dl (2.5-4.9); POTASSIUM 3.9 mmol/L (3.7-5.1); SODIUM 134 mmol/L (135-145); eGFR VALUE FOR BLACK 19 mL/Min
[2017-01-16 04:27] LABS: INR 1.3 INR (0.9-1.1); PROTHROMBIN TIME 15.6 SECONDS (9.0-13.6)
[2017-01-16 04:40] LABS: ALBUMIN 2.7 g/dl (3.5-5.0); ANION GAP 17 mmol/L (0-20); BLOOD UREA NITROGEN 69 mg/dl (6-24); CALCIUM 8.3 mg/dl (8.5-10.5); CARBON DIOXIDE-VENOUS 23 mmol/L (22-32); CHLORIDE 96 mmol/l (96-110); CREATININE 3.62 mg/dl (0.60-1.30); GLUCOSE 214 mg/dL (70-110); PHOSPHOROUS 5.6 mg/dl (2.5-4.9); SODIUM 132 mmol/L (135-145); eGFR VALUE FOR BLACK 20 mL/Min
[2017-01-17 04:17] LABS: BASO % 0.1 % (0-2); EOS % 0.2 % (0-7); EOSINOPHIL ABSOLUTE COUNT 0.1 tho/cmm (0.0-0.7); HGB-HEMOGLOBIN 12.5 gm/dl (13.5-17.0); IMMATURE GRANULOCYTES ABSOLUTE 0.67 tho/cmm (0-0.03); IMMATURE GRANULOCYTES PERCENT 2.6 % (0-0.3); LYMPH % 3.5 % (20-45); LYMPH ABSOLUTE COUNT 0.9 tho/cmm (0.8-4.5); MCH (MEAN CORPUSCULAR HGB) 29.7 pg (28.0-32.0); MCHC MEAN CORPUSCULAR HGB CONC 34.7 % (32.0-36.0); MCV (MEAN CELL VOLUME) 85.5 fl (82.0-96.0); MEAN PLATELET VOLUME 9.9 cmc (9.4-12.4); MONO % 3.7 % (0-12); NEUTROPHIL ABSOLUTE COUNT 22.8 tho/cmm (1.6-8.0); NEUTROPHIL-AUTOMATED 22.8 tho/cmm (1.6-8.0); NEUTROPHILS % 89.9 % (40-80); PLATELET COUNT 102 tho/cmm (150-450); RED BLOOD COUNT 4.21 mil/cmm (4.40-5.70); RED CELL DISTRIBUTION WIDTH 15.7 % (12.4-16.4); WHITE BLOOD COUNT 25.4 tho/cmm (4.0-10.0)
[2017-01-17 04:29] LABS: INR 1.3 INR (0.9-1.1); PROTHROMBIN TIME 14.8 SECONDS (9.0-13.6)
[2017-01-17 04:31] LABS: ALB/GLOB RATIO 0.9 (0.8-2.0); ALBUMIN 2.7 g/dl (3.5-5.0); ALKALINE PHOSPHATASE 141 U/L (33-138); ALT/SGPT 534 U/L (12-78); BILIRUBIN,TOTAL 11.6 mg/dl (0.0-1.5); BLOOD UREA NITROGEN 66 mg/dl (6-24); CALCIUM 8.6 mg/dl (8.5-10.5); CARBON DIOXIDE-VENOUS 22 mmol/L (22-32); CHLORIDE 96 mmol/l (96-110); CREATININE 3.95 mg/dl (0.60-1.30); GLUCOSE 202 mg/dL (70-110); SODIUM 130 mmol/L (135-145); eGFR VALUE FOR BLACK 18 mL/Min
[2017-01-17 04:44] LABS: ANION GAP 16 mmol/L (0-20); AST/SGOT 87 U/L (10-40); POTASSIUM 4.4 mmol/L (3.7-5.1)
[2017-01-18 12:14] LABS: ALBUMIN 3.3 g/dl (3.5-5.0); ANION GAP 25 mmol/L (0-20); BLOOD UREA NITROGEN 57 mg/dl (6-24); CALCIUM 8.6 mg/dl (8.5-10.5); CARBON DIOXIDE-VENOUS 15 mmol/L (22-32); CHLORIDE 98 mmol/l (96-110); CREATININE 3.94 mg/dl (0.60-1.30); GLUCOSE 191 mg/dL (70-110); PHOSPHOROUS 6.9 mg/dl (2.5-4.9); SODIUM 133 mmol/L (135-145); eGFR VALUE FOR BLACK 18 mL/Min
[2017-01-18 12:16] LABS: POTASSIUM 5.1 mmol/L (3.7-5.1)
[2017-01-19 11:12] LABS: BASO % 0.1 % (0-2); EOS % 0.2 % (0-7); HCT-HEMATOCRIT 34.8 % (36.0-53.5); HGB-HEMOGLOBIN 12.4 gm/dl (13.5-17.0); IMMATURE GRANULOCYTES ABSOLUTE 0.23 tho/cmm (0-0.03); IMMATURE GRANULOCYTES PERCENT 1.2 % (0-0.3); LYMPH % 5.8 % (20-45); LYMPH ABSOLUTE COUNT 1.1 tho/cmm (0.8-4.5); MCH (MEAN CORPUSCULAR HGB) 30.4 pg (28.0-32.0); MCHC MEAN CORPUSCULAR HGB CONC 35.6 % (32.0-36.0); MCV (MEAN CELL VOLUME) 85.3 fl (82.0-96.0); MEAN PLATELET VOLUME 9.8 cmc (9.4-12.4); MONO % 3.9 % (0-12); MONOCYTE ABSOLUTE COUNT 0.8 tho/cmm (0.0-1.2); NEUTROPHILS % 88.8 % (40-80); PLATELET COUNT 110 tho/cmm (150-450); RED BLOOD COUNT 4.08 mil/cmm (4.40-5.70); RED CELL DISTRIBUTION WIDTH 16.2 % (12.4-16.4); WHITE BLOOD COUNT 19.1 tho/cmm (4.0-10.0)
[2017-01-19 11:29] LABS: ALB/GLOB RATIO 0.9 (0.8-2.0); ALBUMIN 2.7 g/dl (3.5-5.0); ALKALINE PHOSPHATASE 165 U/L (33-138); ALT/SGPT 293 U/L (12-78); ANION GAP 19 mmol/L (0-20); AST/SGOT 93 U/L (10-40); BILIRUBIN,DIRECT 8.2 mg/dl (0.0-0.3); BILIRUBIN,INDIRECT 2.5 mg/dL (0.0-1.0); BILIRUBIN,TOTAL 10.7 mg/dl (0.0-1.5); BLOOD UREA NITROGEN 51 mg/dl (6-24); CALCIUM 8.2 mg/dl (8.5-10.5); CARBON DIOXIDE-VENOUS 22 mmol/L (22-32); CHLORIDE 94 mmol/l (96-110); CREATININE 3.67 mg/dl (0.60-1.30); GLUCOSE 194 mg/dL (70-110); MAGNESIUM 2.1 mg/dl (1.8-2.6); PHOSPHOROUS 6.7 mg/dl (2.5-4.9); SODIUM 131 mmol/L (135-145); eGFR VALUE FOR BLACK 20 mL/Min
[2017-01-19 11:31] LABS: POTASSIUM 4.1 mmol/L (3.7-5.1)
[2017-01-20 05:46] LABS: ANION GAP 20 mmol/L (0-20); BLOOD UREA NITROGEN 70 mg/dl (6-24); CALCIUM 8.2 mg/dl (8.5-10.5); CARBON DIOXIDE-VENOUS 21 mmol/L (22-32); CHLORIDE 93 mmol/l (96-110); GLUCOSE 166 mg/dL (70-110); MAGNESIUM 2.3 mg/dl (1.8-2.6); POTASSIUM 4.3 mmol/L (3.7-5.1); SODIUM 130 mmol/L (135-145)
[2017-01-20 05:53] LABS: CREATININE 4.78 mg/dl (0.60-1.30); PHOSPHOROUS 8.7 mg/dl (2.5-4.9); eGFR VALUE FOR BLACK 15 mL/Min
[2017-01-21] MEDS ORDERED: COMBIVENT RESPIM4 G1 NEB (11:57)
[2017-01-21] MEDS ORDERED: VANCOMYCIN HCL125 M1 PO (11:57)
[2017-01-21] MEDS ORDERED: HEPARIN SO5000 UNIT1 SC (11:58)
[2017-01-21] MEDS ORDERED: AMIODARONE HCL200 M1 PO ×2 (11:59)
[2017-01-21] MEDS ORDERED: NITROGLYCERIN0.4 M2 SL (12:00)
[2017-01-21] MEDS ORDERED: COREG3.125 M1 PO (12:01)
[2017-01-21] MEDS ORDERED: DULCOLAX10 MG PR (12:02)
[2017-01-21] MEDS ORDERED: MILK OF MAGNESIA PO (12:03)
[2017-01-21] MEDS ORDERED: ZOFRAN4 M2 PO (12:03)
[2017-01-21] MEDS ORDERED: PREDNISONE10 M1 PO ×2 (12:04→12:05)
[2017-01-21] MEDS ORDERED: NOVOLOG100 UNITS/ SC (12:07)
--- NOTE | 2017-01-21 13:11 | NUR ---
01/21: PT DEVELOPED A PRESSURE ULCER ON LEFT NARES FROM NG TUBE
[2017-01-21] MEDS ORDERED: COUMADIN2 M1 PO (15:52)
[2017-06-18] MEDS ORDERED: LEXAPRO10 M2 PO (10:07)
[2017-06-18] MEDS ORDERED: ATIVAN0.5 M1 PO (10:08)
[2017-06-18] MEDS ORDERED: JANTOVEN5 M1 PO (10:08)
[2017-06-18] MEDS ORDERED: JANTOVEN PO (10:08)
[2017-06-18] MEDS ORDERED: PREDNISONE10 M1 (10:09)
[2017-06-18] MEDS ORDERED: ZOFRAN4 M2 PO (10:09)
[2017-06-18] MEDS ORDERED: SUCRALFATE1 GM PO (10:10)
[2017-06-18] MEDS ORDERED: MAGNESIUM400 M2 PO (10:11)
[2017-06-18] MEDS ORDERED: ZYLOPRIM300 M1 PO (13:29)
[2017-06-18] MEDS ORDERED: PREVACID15 M2 PO (13:39)
[2017-06-18] MEDS ORDERED: CARAFATE1 G2 PO (13:41)
[2017-06-18] MEDS ORDERED: PREDNISONE5 M1 PO (13:42)
[2017-06-18] MEDS ORDERED: RANITIDINE HCL150 M3 PO (13:43)
[2017-06-18] MEDS ORDERED: MUPIROCIN22 G2 TOP (13:51)
[2017-06-18] MEDS ORDERED: AMITRIPTYLINE H25 M1 PO (13:57)
[2017-06-18] MEDS ORDERED: JANTOVEN2 M1 PO (14:31)
[2017-06-20] MEDS ORDERED: PROMETHAZINE HC25 M3 PO (15:25)
[2017-06-20] MEDS ORDERED: OMEPRAZOLE20 M4 PO (15:26)
== END 2017-01-21 13:15 | DRG 280 ==
LOC: EDMED 19:36 → EMR2 23:26 → PCUB 01-04 00:15 → CCU 01-06 14:30
PROVIDERS: Emergency Medicine; Family Medicine; Internal Medicine Cardiovascular Disease; Internal Medicine Hematology & Oncology; Internal Medicine Medical Oncology; Internal Medicine Nephrology; Internal Medicine Pulmonary Disease; Nurse Practitioner Family; Radiology Diagnostic Radiology; ADMIT Internal Medicine
PROC: 5A09357 Assistance with Respiratory Ventilation, Less than 24 Consecutive Hours, Continuous Positive Airway Pressure (ICD-10-PCS; 2017-01-05)
PROC: 05HP33Z Insertion of Infusion Device into Right External Jugular Vein, Percutaneous Approach (ICD-10-PCS; 2017-01-06)
PROC: B543ZZA Ultrasonography of Right Jugular Veins, Guidance (ICD-10-PCS; 2017-01-06)
PROC: 5A1955Z Respiratory Ventilation, Greater than 96 Consecutive Hours (ICD-10-PCS; 2017-01-07)
PROC: 0BH17EZ Insertion of Endotracheal Airway into Trachea, Via Natural or Artificial Opening (ICD-10-PCS; 2017-01-07)
PROC: B214YZZ Fluoroscopy of Right Heart using Other Contrast (ICD-10-PCS; 2017-01-08)
PROC: 02H633Z Insertion of Infusion Device into Right Atrium, Percutaneous Approach (ICD-10-PCS; 2017-01-08)
PROC: 3E0436Z Introduction of Nutritional Substance into Central Vein, Percutaneous Approach (ICD-10-PCS; 2017-01-11)
PROC: 0JH60XZ Insertion of Tunneled Vascular Access Device into Chest Subcutaneous Tissue and Fascia, Open Approach (ICD-10-PCS; 2017-01-16)
PROC: 02HV33Z Insertion of Infusion Device into Superior Vena Cava, Percutaneous Approach (ICD-10-PCS; 2017-01-16)
PROC: B518ZZA Fluoroscopy of Superior Vena Cava, Guidance (ICD-10-PCS; 2017-01-16)
PROC: 05H533Z Insertion of Infusion Device into Right Subclavian Vein, Percutaneous Approach (ICD-10-PCS; principal; 2017-01-17)
PROC: 5A1D60Z (ICD-10-PCS; 2017-01-18)
DX: I47.2 Ventricular tachycardia (principal); R57.8 Other shock; I21.4 Non-ST elevation (NSTEMI) myocardial infarction; K72.00 Acute and subacute hepatic failure without coma; J96.01 Acute respiratory failure with hypoxia; A41.9 Sepsis, unspecified organism; R65.21 Severe sepsis with septic shock; N17.9 Acute kidney failure, unspecified; G93.49 Other encephalopathy; I13.0 Hypertensive heart and chronic kidney disease with heart failure and stage 1 through stage 4 chronic kidney disease, or unspecified chronic kidney disease; N18.3 Chronic kidney disease, stage 3 (moderate); I50.22 Chronic systolic (congestive) heart failure; I42.9 Cardiomyopathy, unspecified; M35.1 Other overlap syndromes; A04.7 Enterocolitis due to Clostridium difficile; J98.11 Atelectasis; E87.2 Acidosis; D68.9 Coagulation defect, unspecified; E87.1 Hypo-osmolality and hyponatremia; Z95.810 Presence of automatic (implantable) cardiac defibrillator; Z79.01 Long term (current) use of anticoagulants; D64.9 Anemia, unspecified; G47.33 Obstructive sleep apnea (adult) (pediatric); J30.9 Allergic rhinitis, unspecified; E78.00 Pure hypercholesterolemia, unspecified; M10.9 Gout, unspecified; N40.1 Benign prostatic hyperplasia with lower urinary tract symptoms; R35.1 Nocturia; G47.00 Insomnia, unspecified; E88.09 Other disorders of plasma-protein metabolism, not elsewhere classified; E83.51 Hypocalcemia; E83.39 Other disorders of phosphorus metabolism; I48.2 Chronic atrial fibrillation; E78.5 Hyperlipidemia, unspecified; Z88.8 Allergy status to other drugs, medicaments and biological substances; Z88.2 Allergy status to sulfonamides; E87.6 Hypokalemia; E55.9 Vitamin D deficiency, unspecified; I25.10 Atherosclerotic heart disease of native coronary artery without angina pectoris; F32.9 Major depressive disorder, single episode, unspecified; M54.5 Low back pain; Z79.52 Long term (current) use of systemic steroids; M13.0 Polyarthritis, unspecified; E66.9 Obesity, unspecified; Z68.34 Body mass index [BMI] 34.0-34.9, adult; E11.22 Type 2 diabetes mellitus with diabetic chronic kidney disease; R11.2 Nausea with vomiting, unspecified; R00.1 Bradycardia, unspecified; R25.1 Tremor, unspecified
CPT/HCPCS: A4913; C1750; C1751; C1752; C1769; C9113; J0171; J0282; J0610; J0690; J1250; J1265; J1644; J1720; J1815; J1940; J1956; J2060; J2212; J2250; J2270; J2405; J2543; J2930; J3010; J3370; J3430; J3475; J3480; J7030; J7040; J7050; J7512; J7999; P9012; P9017; P9047

== ENCOUNTER 2017-03-03 16:15 | Observation (INO) | payer BC ==
[~2017-03-03 16:15] MED LIST changes: +AMIODARONE HCL200 M1 PO; +COMBIVENT RESPIM4 G1 NEB; +COREG3.125 M1 PO; +COUMADIN2 M1 PO; +DULCOLAX10 MG PR; +ENTRESTO 24 MG1 EACH PO; +HEPARIN SO5000 UNIT1 SC; +LANOXIN125 MC3 PO; +MILK OF MAGNESIA PO; +NITROGLYCERIN0.4 M2 SL; +NOVOLOG100 UNITS/ SC; +PLAQUENIL200 M1; +POTASSIUM CHLO20 ME3 PO; +TOPROL XL25 M1 PO; +VANCOMYCIN HCL125 M1 PO; +VITAMIN D31000 UNI3 PO
[2017-03-03] MEDS ORDERED: COREG3.125 M1 PO (16:36)
[2017-03-03] MEDS ORDERED: NOVOLOG100 UNITS/ SC (16:38)
[2017-03-03] MEDS ORDERED: ACID CONTROL150 M2 PO (16:39)
[2017-03-03] MEDS ORDERED: DEMADEX20 M1 PO (16:39)
[2017-03-03] MEDS ORDERED: AMIODARONE HCL200 M1 PO (16:39)
[2017-03-03] MEDS ORDERED: ZYLOPRIM100 M1 PO (16:39)
[2017-03-03] MEDS ORDERED: DELTASONE20 MG PO (16:40)
[2017-03-03] MEDS ORDERED: POTASSIUM CHLO20 ME3 PO (16:40)
[2017-03-03] MEDS ORDERED: COUMADIN5 M2 PO (16:41)
[2017-03-03] MEDS ORDERED: COLACE100 M1 PO (16:41)
[2017-03-03] MEDS ORDERED: TYLENOL325 M2 PO (16:42)
[2017-03-03] MEDS ORDERED: ROXICODONE5 M2 PO (16:45)
[2017-03-03] MEDS ORDERED: BENADRYL25 M3 PO (16:46)
[2017-03-03] MEDS ORDERED: MAG-AL LIQUID30 M1 PO (16:47)
[2017-03-03 18:57] LABS: BASO % 0.1 % (0-2); EOS % 0.2 % (0-7); HCT-HEMATOCRIT 35.6 % (36.0-53.5); HGB-HEMOGLOBIN 11.4 gm/dl (13.5-17.0); IMMATURE GRANULOCYTES ABSOLUTE 0.08 tho/cmm (0-0.03); IMMATURE GRANULOCYTES PERCENT 0.5 % (0-0.3); LYMPH % 3.1 % (20-45); LYMPH ABSOLUTE COUNT 0.5 tho/cmm (0.8-4.5); MCH (MEAN CORPUSCULAR HGB) 29.1 pg (28.0-32.0); MCV (MEAN CELL VOLUME) 90.8 fl (82.0-96.0); MEAN PLATELET VOLUME 9.2 cmc (9.4-12.4); MONO % 6.1 % (0-12); NEUTROPHIL ABSOLUTE COUNT 15.2 tho/cmm (1.6-8.0); NEUTROPHIL-AUTOMATED 15.2 tho/cmm (1.6-8.0); PLATELET COUNT 209 tho/cmm (150-450); RED BLOOD COUNT 3.92 mil/cmm (4.40-5.70); WHITE BLOOD COUNT 16.8 tho/cmm (4.0-10.0)
[2017-03-03 19:01] LABS: INR 1.5 INR (0.9-1.1); PROTHROMBIN TIME 17.8 SECONDS (9.0-13.6)
[2017-03-03 19:15] LABS: ALBUMIN 3.8 g/dl (3.5-5.0); ALKALINE PHOSPHATASE 100 U/L (33-138); ALT/SGPT 29 U/L (12-78); ANION GAP 16 mmol/L (0-20); AST/SGOT 23 U/L (10-40); BILIRUBIN,DIRECT 0.6 mg/dl (0.0-0.3); BILIRUBIN,INDIRECT 0.7 mg/dL (0.0-1.0); BILIRUBIN,TOTAL 1.3 mg/dl (0.0-1.5); BLOOD UREA NITROGEN 36 mg/dl (6-24); CALCIUM 8.3 mg/dl (8.5-10.5); CARBON DIOXIDE-VENOUS 28 mmol/L (22-32); CHLORIDE 96 mmol/l (96-110); CREATININE 1.83 mg/dl (0.60-1.30); GLUCOSE 184 mg/dL (70-110); MAGNESIUM 1.2 mg/dl (1.8-2.6); PHOSPHOROUS 3.6 mg/dl (2.5-4.9); POTASSIUM 4.1 mmol/L (3.7-5.1); SODIUM 136 mmol/L (135-145); eGFR VALUE FOR BLACK 46 mL/Min
[2017-03-03 19:40] LABS: PROCALCITONIN 0.14 ng/ml (0.05-0.09)
[2017-03-04 05:42] LABS: HCT-HEMATOCRIT 32.3 % (36.0-53.5); HGB-HEMOGLOBIN 10.5 gm/dl (13.5-17.0); MCH (MEAN CORPUSCULAR HGB) 29.2 pg (28.0-32.0); MCHC MEAN CORPUSCULAR HGB CONC 32.5 % (32.0-36.0); MEAN PLATELET VOLUME 9.2 cmc (9.4-12.4); PLATELET COUNT 174 tho/cmm (150-450); RED BLOOD COUNT 3.59 mil/cmm (4.40-5.70); RED CELL DISTRIBUTION WIDTH 14.8 % (12.4-16.4); WHITE BLOOD COUNT 11.7 tho/cmm (4.0-10.0)
[2017-03-04 05:56] LABS: ANION GAP 15 mmol/L (0-20); BLOOD UREA NITROGEN 35 mg/dl (6-24); CALCIUM 8.1 mg/dl (8.5-10.5); CARBON DIOXIDE-VENOUS 30 mmol/L (22-32); CHLORIDE 94 mmol/l (96-110); CREATININE 1.62 mg/dl (0.60-1.30); GLUCOSE 150 mg/dL (70-110); MAGNESIUM 1.3 mg/dl (1.8-2.6); PHOSPHOROUS 3.5 mg/dl (2.5-4.9); POTASSIUM 3.5 mmol/L (3.7-5.1); SODIUM 135 mmol/L (135-145); eGFR VALUE FOR BLACK 54 mL/Min
[2017-03-04 07:32] LABS: BAND % 5 % (0-20); BAND ABSOLUTE COUNT 0.6 tho/cmm (0-2.0)
[2017-06-18] MEDS ORDERED: LEXAPRO10 M2 PO (10:07)
[2017-06-18] MEDS ORDERED: JANTOVEN5 M1 PO (10:08)
[2017-06-18] MEDS ORDERED: ATIVAN0.5 M1 PO (10:08)
[2017-06-18] MEDS ORDERED: JANTOVEN PO (10:08)
[2017-06-18] MEDS ORDERED: ZOFRAN4 M2 PO (10:09)
[2017-06-18] MEDS ORDERED: PREDNISONE10 M1 (10:09)
[2017-06-18] MEDS ORDERED: SUCRALFATE1 GM PO (10:10)
[2017-06-18] MEDS ORDERED: MAGNESIUM400 M2 PO (10:11)
[2017-06-18] MEDS ORDERED: ZYLOPRIM300 M1 PO (13:29)
[2017-06-18] MEDS ORDERED: PREVACID15 M2 PO (13:39)
[2017-06-18] MEDS ORDERED: CARAFATE1 G2 PO (13:41)
[2017-06-18] MEDS ORDERED: PREDNISONE5 M1 PO (13:42)
[2017-06-18] MEDS ORDERED: RANITIDINE HCL150 M3 PO (13:43)
[2017-06-18] MEDS ORDERED: MUPIROCIN22 G2 TOP (13:51)
[2017-06-18] MEDS ORDERED: AMITRIPTYLINE H25 M1 PO (13:57)
[2017-06-18] MEDS ORDERED: JANTOVEN2 M1 PO (14:31)
[2017-06-20] MEDS ORDERED: PROMETHAZINE HC25 M3 PO (15:25)
[2017-06-20] MEDS ORDERED: OMEPRAZOLE20 M4 PO (15:26)
== END 2017-03-04 11:55 ==
LOC: CAR1 16:15
PROVIDERS: Hospitalist; Internal Medicine Nephrology; ADMIT Family Medicine
PROC: 05PY33Z Removal of Infusion Device from Upper Vein, Percutaneous Approach (ICD-10-PCS; principal; 2017-03-03)
DX: R50.9 Fever, unspecified (principal); R73.9 Hyperglycemia, unspecified; I42.9 Cardiomyopathy, unspecified; I10 Essential (primary) hypertension; J96.90 Respiratory failure, unspecified, unspecified whether with hypoxia or hypercapnia; N17.9 Acute kidney failure, unspecified; K72.00 Acute and subacute hepatic failure without coma; Z79.891 Long term (current) use of opiate analgesic; Z79.899 Other long term (current) drug therapy
CPT/HCPCS: J1815; J3370; J3475; J7050; J7512

== ENCOUNTER 2017-03-19 16:16 | Emergency (ER) | payer BC ==
[~2017-03-19 16:16] MED LIST changes: +ACID CONTROL150 M2 PO; +BENADRYL25 M3 PO; +COLACE100 M1 PO; +MAG-AL LIQUID30 M1 PO; +ROXICODONE5 M2 PO; +ZYLOPRIM100 M1 PO
[2017-03-19] MEDS ORDERED: COUMADIN6 M1 PO (16:21)
[2017-03-19] MEDS ORDERED: PREDNISONE10 M1 PO (16:22)
[2017-03-19] MEDS ORDERED: MAGNESIUM OXID400 M1 PO (16:23)
[2017-03-19] MEDS ORDERED: CILOXAN5 M1 LEFT EYE (17:52)
[2017-03-19 18:03] LABS: INR 3.8 INR (0.9-1.1)
[2017-06-18] MEDS ORDERED: LEXAPRO10 M2 PO (10:07)
[2017-06-18] MEDS ORDERED: JANTOVEN5 M1 PO (10:08)
[2017-06-18] MEDS ORDERED: JANTOVEN PO (10:08)
[2017-06-18] MEDS ORDERED: ATIVAN0.5 M1 PO (10:08)
[2017-06-18] MEDS ORDERED: PREDNISONE10 M1 (10:09)
[2017-06-18] MEDS ORDERED: ZOFRAN4 M2 PO (10:09)
[2017-06-18] MEDS ORDERED: SUCRALFATE1 GM PO (10:10)
[2017-06-18] MEDS ORDERED: MAGNESIUM400 M2 PO (10:11)
[2017-06-18] MEDS ORDERED: ZYLOPRIM300 M1 PO (13:29)
[2017-06-18] MEDS ORDERED: PREVACID15 M2 PO (13:39)
[2017-06-18] MEDS ORDERED: CARAFATE1 G2 PO (13:41)
[2017-06-18] MEDS ORDERED: PREDNISONE5 M1 PO (13:42)
[2017-06-18] MEDS ORDERED: RANITIDINE HCL150 M3 PO (13:43)
[2017-06-18] MEDS ORDERED: MUPIROCIN22 G2 TOP (13:51)
[2017-06-18] MEDS ORDERED: AMITRIPTYLINE H25 M1 PO (13:57)
[2017-06-18] MEDS ORDERED: JANTOVEN2 M1 PO (14:31)
[2017-06-20] MEDS ORDERED: PROMETHAZINE HC25 M3 PO (15:25)
[2017-06-20] MEDS ORDERED: OMEPRAZOLE20 M4 PO (15:26)
== END 2017-03-19 18:25 ==
LOC: EDMED 16:16
PROVIDERS: Emergency Medicine
DX: H11.32 Conjunctival hemorrhage, left eye (principal); E11.9 Type 2 diabetes mellitus without complications; I10 Essential (primary) hypertension; Z79.4 Long term (current) use of insulin

== ENCOUNTER 2017-03-22 10:18 | Emergency (ER) | payer BC ==
[~2017-03-22 10:18] MED LIST changes: +CILOXAN5 M1 LEFT EYE
[2017-03-22] MEDS ORDERED: CILOXAN5 M1 OP (10:40)
[2017-03-22] MEDS ORDERED: LIDOCAINE1 EACH TP (10:41)
[2017-03-22] MEDS ORDERED: TIZANIDINE HCL2 M2 PO (10:42)
[2017-03-22] MEDS ORDERED: HYDROXYZINE HCL25 M1 PO (10:42)
[2017-03-22] MEDS ORDERED: JANTOVEN5 M1 PO (10:44)
[2017-03-22] MEDS ORDERED: RANITIDINE HCL150 M2 PO (10:45)
[2017-03-22] MEDS ORDERED: MILK OF MAGNESIA PO (10:47)
[2017-03-22] MEDS ORDERED: TYLENOL325 M2 PO (10:48)
[2017-03-22] MEDS ORDERED: NITROGLYCERIN0.4 M2 SL (10:49)
[2017-03-22 11:07] LABS: BASO % 0.1 % (0-2); EOS % 0.7 % (0-7); EOSINOPHIL ABSOLUTE COUNT 0.1 tho/cmm (0.0-0.7); HCT-HEMATOCRIT 35.6 % (36.0-53.5); HGB-HEMOGLOBIN 11.6 gm/dl (13.5-17.0); IMMATURE GRANULOCYTES ABSOLUTE 0.08 tho/cmm (0-0.03); IMMATURE GRANULOCYTES PERCENT 0.8 % (0-0.3); MCH (MEAN CORPUSCULAR HGB) 28.5 pg (28.0-32.0); MCHC MEAN CORPUSCULAR HGB CONC 32.6 % (32.0-36.0); MCV (MEAN CELL VOLUME) 87.5 fl (82.0-96.0); MEAN PLATELET VOLUME 8.9 cmc (9.4-12.4); MONO % 6.8 % (0-12); MONOCYTE ABSOLUTE COUNT 0.7 tho/cmm (0.0-1.2); NEUTROPHIL ABSOLUTE COUNT 8.2 tho/cmm (1.6-8.0); NEUTROPHIL-AUTOMATED 8.2 tho/cmm (1.6-8.0); NEUTROPHILS % 81.6 % (40-80); PLATELET COUNT 223 tho/cmm (150-450); RED BLOOD COUNT 4.07 mil/cmm (4.40-5.70); RED CELL DISTRIBUTION WIDTH 14.2 % (12.4-16.4); WHITE BLOOD COUNT 10.1 tho/cmm (4.0-10.0)
[2017-03-22 11:17] LABS: PARTIAL THROMBOPLASTIN TIME 29 SECONDS (22-36)
[2017-03-22 11:19] LABS: INR 1.9 INR (0.9-1.1); PROTHROMBIN TIME 22.2 SECONDS (9.0-13.6)
[2017-03-22 11:24] LABS: ALBUMIN 3.7 g/dl (3.5-5.0); ALKALINE PHOSPHATASE 83 U/L (33-138); ALT/SGPT 24 U/L (12-78); ANION GAP 19 mmol/L (0-20); AST/SGOT 17 U/L (10-40); BILIRUBIN,TOTAL 1.3 mg/dl (0.0-1.5); BLOOD UREA NITROGEN 40 mg/dl (6-24); CALCIUM 9.4 mg/dl (8.5-10.5); CARBON DIOXIDE-VENOUS 30 mmol/L (22-32); CHLORIDE 91 mmol/l (96-110); CREATININE 1.73 mg/dl (0.60-1.30); GLUCOSE 209 mg/dL (70-110); POTASSIUM 3.1 mmol/L (3.7-5.1); SODIUM 137 mmol/L (135-145); eGFR VALUE FOR BLACK 49 mL/Min
[2017-06-18] MEDS ORDERED: LEXAPRO10 M2 PO (10:07)
[2017-06-18] MEDS ORDERED: JANTOVEN PO (10:08)
[2017-06-18] MEDS ORDERED: ATIVAN0.5 M1 PO (10:08)
[2017-06-18] MEDS ORDERED: JANTOVEN5 M1 PO (10:08)
[2017-06-18] MEDS ORDERED: ZOFRAN4 M2 PO (10:09)
[2017-06-18] MEDS ORDERED: PREDNISONE10 M1 (10:09)
[2017-06-18] MEDS ORDERED: SUCRALFATE1 GM PO (10:10)
[2017-06-18] MEDS ORDERED: MAGNESIUM400 M2 PO (10:11)
[2017-06-18] MEDS ORDERED: ZYLOPRIM300 M1 PO (13:29)
[2017-06-18] MEDS ORDERED: PREVACID15 M2 PO (13:39)
[2017-06-18] MEDS ORDERED: CARAFATE1 G2 PO (13:41)
[2017-06-18] MEDS ORDERED: PREDNISONE5 M1 PO (13:42)
[2017-06-18] MEDS ORDERED: RANITIDINE HCL150 M3 PO (13:43)
[2017-06-18] MEDS ORDERED: MUPIROCIN22 G2 TOP (13:51)
[2017-06-18] MEDS ORDERED: AMITRIPTYLINE H25 M1 PO (13:57)
[2017-06-18] MEDS ORDERED: JANTOVEN2 M1 PO (14:31)
[2017-06-20] MEDS ORDERED: PROMETHAZINE HC25 M3 PO (15:25)
[2017-06-20] MEDS ORDERED: OMEPRAZOLE20 M4 PO (15:26)
== END 2017-03-22 13:38 ==
LOC: EDMED 10:18
PROVIDERS: Nurse Practitioner Family
DX: R51 Headache (principal); R11.2 Nausea with vomiting, unspecified; I25.10 Atherosclerotic heart disease of native coronary artery without angina pectoris; I48.91 Unspecified atrial fibrillation; I11.0 Hypertensive heart disease with heart failure; I50.9 Heart failure, unspecified; N19 Unspecified kidney failure
CPT/HCPCS: J0780; J1200; J2060; J2405; J7030